=== PATIENT | female | born 1960 | race Caucasian/White ===

== ENCOUNTER 2024-12-08 10:18 | Outpatient (AMB) | payer OTHER, SELFPAY ==
--- NOTE | 2024-12-08 10:20 | MHC.PC.OV ---
Vital Signs 12/08/24 10:21 Height 5 ft 4.5 in Weight 221 lb 4 oz BMI 37.4 BP 118/76 Blood Pressure Location Lt brachial Position Sitting Pulse 70 Pulse Source Pulse Oximeter Pulse Oximetry (%) 98 Oxygen Delivery Method Room Air Intake Visit Reasons: establish care Direct Mail Coordinator Required: No Accompanied by: Self / Same As Patient Allergies diphenhydramine [From Benadryl] Allergy (Severe, Verified 12/08/24 10:49) Hives morphine Adverse Reaction (Severe, Verified 12/08/24 10:49) chest pain bee stings Allergy (Severe, Uncoded 12/08/24 10:49) Anaphylaxis Medication List - Last Reconciled 12/08/24 by Socrates Fine MD flaxseed oil 2,000 mg PO DAILY multivitamin 1 tab PO DAILY Tobacco use date assessed: 12/08/24 Dental Screening Dental Screen Date: 12/08/24 Did you have a dental visit in the last 12 months?: No Did you have a dental problem in the last 6 months where you did not have access to dental care?: No Was dental information given to patient?: Patient has dentist HPI establish care HPI Details Patient comes in today for her annual physical examination and to establish care - is a new patient to the practice Patient states that her previous PCP was in [place] and that she's had to switch insurance coverage due to cost but her previous PCP does not accept her current health insurance Patient states that she just had a breast Bx done at [place] last month (November 2024) and that her pathology reportedly came back benign States that she feels okay overall and does not really have any significant chronic medical issues She denies any headaches or dizziness Denies any chest pains, no SOB No nausea/vomiting, no abdominal pain No change in bowel habits noted She denies any acute urinary symptoms She is due for her repeat colonoscopy and would like to get a referral to go back to Dr. 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 and will let us know if she needs a referral from us or not She is overdue for her repeat bone density [facility] Medical History (Updated 12/08/24 @ 12:17 by Socrates Fine MD) Obesity (BMI 30-39.9) Surgical History (Updated 12/08/24 @ 10:58 by Socrates Fine MD) Hx of appendectomy Hx of colonoscopy History of partial colectomy Hx of umbilical hernia repair History of partial hysterectomy History of resection of rib Status post tonsillectomy Family History Other Breast cancer Diabetes Heart failure Hypertension Kidney disease Lung cancer Lymphoma Tracheal cancer Social History Housing: House Patient Tobacco Use Status: Former Tobacco user e-Cigarette/Vaping Use: Never Used service: No Current occupational status: employed Current occupational exposures/hazards: No Cognitive needs: No Hearing needs: No Vision needs: Yes Questionnaire PHQ-9 Over the last 2 weeks, how often have you been bothered by any of the following problems? 1. Little interest or pleasure in doing things: not at all 2. Feeling down, depressed, or hopeless: not at all 3. Trouble falling or staying asleep, or sleeping too much: not at all 4. Feeling tired or having little energy: not at all 5. Poor appetite or overeating: not at all 6. Feeling bad about yourself - or that you are a failure or have let yourself or your family down: not at all 7. Trouble concentrating on things, such as reading the newspaper or watching television: not at all 8. Moving or speaking so slowly that other people could have noticed. Or the opposite - being so fidgety or restless that you have been moving around a lot more than usual: not at all 9. Thoughts that you would be better off or of hurting yourself in some way: not at all Total score: 0 Depression Screening Interpretation: Negative Depression Screening Done: Yes 37122 - PHQ-9 Billing: Yes Source: Developed by Drs. Chad Camilo, Kathy Flowers, Yosi Marley and colleagues, with an educational surjit from [employer]. Thrive Questionnaire Date Thrive assessed: 12/08/24 I am a: Patient What is your living situation today?: I have a steady place to live Within the past 12 months, did the food you bought not last and you didn't have the money to get more?: Never true Within the past 12 months, did you worry whether your food would run out before you got money to buy more?: Never true Do you have trouble paying for medicines?: No Do you have trouble getting transportation to medical appointments?: No Do you have trouble paying your heating and electricity bill?: No Do you have trouble taking care of your child, family member or friend?: No Do you have trouble with day-to-day activities such as bathing, preparing meals, shopping, managing finances, etc.?: No Are you currently unemployed and looking for a job?: No Are you interested in more education?: No Please select the resources that you would like help with: None Currently or been in a relationship where the following occur: No concerns reported THRIVE Score: 0 AUDIT C Alcohol Use Questionnaire (AUDIT-C) 1. How often do you have a drink containing alcohol?: Never 3. How often do you have six or more drinks on one occasion?: Never Total Score: 0 Score Reviewed/Action Taken: Yes CODY-7 AMB Questionnaire CODY-7 Date CODY - 7 assessed: 12/08/24 Feeling nervous, anxious, or on edge: 0 = Not at all Not being able to stop or control worryin = Not at all Worrying too much about different things: 0 = Not at all Trouble relaxin = Not at all Being so restless that it is hard to sit still: 0 = Not at all Becoming easily annoyed or irritable: 0 = Not at all Feeling afraid as if something awful might happen: 0 = Not at all Total CODY-7 score (0-4 normal; 5-9 mild; 10-14 moderate; 15-21 severe): 0 Source: Developed by Drs. Chad Camilo, Kathy Flowers, Yosi Marley and colleagues, with an educational surjit from [employer]. Review of Systems Const Denies chills, Denies fatigue, Denies fever(s), Denies headache(s) and Denies malaise Eyes Denies blurry vision, Denies change in vision, Denies irritation and Denies itchy eyes ENT Denies dysphagia, Denies dizziness, Denies otalgia, Denies headache(s), Denies nasal congestion, Denies neck pain, Denies odynophagia, Denies sinus pain and Denies sore throat Card Denies chest pain, Denies rapid heart rate, Denies irregular heart rhythm, Denies palpitations and Denies dyspnea Resp Denies chest congestion, Denies cough, Denies dyspnea and Denies wheezing GI Denies abdominal pain, Denies bloating, Denies constipation, Denies dysphagia, Denies heartburn, Denies diarrhea, Denies nausea, Denies odynophagia and Denies vomiting Denies hematuria, Denies urinary frequency, Denies dysuria, Denies urinary incontinence and Denies urinary urgency Musc Denies back pain, Denies arthralgias, Denies joint swelling, Denies muscle weakness and Denies neck pain Skin/Breast Denies breast pain, Denies breast mass, Denies change in pigmentation, Denies lesions, Denies rash and Denies unusual bruising Neuro Denies dizziness, Denies headache(s) and Denies paresthesias Psych Denies anxiety and Denies depression Endo Denies fatigue and Denies palpitations Kermit/Lymph Denies easy bruising Aller/Immun Denies itchy eyes and Denies wheezing Physical exam (Primary Care) Vital Signs: Last Vital Signs Pulse 70 12/08/24 10:21 BP 118/76 12/08/24 10:21 Pulse Ox 98 12/08/24 10:21 Oxygen Delivery Method Room Air 12/08/24 10:21 BMI result Body Mass Index 37.4 Tobacco/Smoking Status: Tobacco use Status Tobacco use date assessed 12/08/24 12/08/24 10:32 Patient Tobacco Use Status Former Tobacco user 12/08/24 10:32 e-Cigarette/Vaping Use Never Used 12/08/24 10:32 PHQ-9: PHQ-9 Score PHQ-9: Total score 0 12/08/24 10:55 Depression Screening Interpretation: Negative Thrive Assessment: Date of Thrive Assessment Date Thrive assessed 12/08/24 12/08/24 10:32 Currently or been in a relationship where the following occur: No concerns reported Const General: no acute distress, alert and awake Orientation/consciousness: patient oriented x3 HENMT Head: Yes normocephalic and Yes atraumatic Ears: external ears normal, TM's normal bilaterally and EAC's normal General nose exam: No nasal discharge present Face and sinus: Yes normal facial exam and Yes sinuses nontender Teeth and gingiva: dentition normal Throat: Yes posterior oropharynx normal and Yes tonsils normal (no TP congestion) Eyes Eyelids: Yes eyelids normal Conjunctivae: conjunctivae normal Pupils: Equal, round and reactive pupils present EOM: EOMs intact bilaterally Neck Neck: Yes no lymphadenopathy and Yes supple Thyroid: Thyroid normal Resp Auscultation: clear to auscultation bilaterally, no rales and no wheezes Cardio Rate: regular rate Rhythm: regular rhythm Heart sounds: no murmurs GI Palpation (GI): Soft to palpation, nontender and No hepatosplenomegaly present Auscultation: normal bowel sounds General: Yes no CVA tenderness Back/Spine/Pelvis Back: no CVA tenderness Thoracic/Lumbar Spine: thoracic and lumbar spine normal to inspection Skin Lesions: no lesions Rashes: no rashes Neuro General: patient oriented x3, moves all extremities, no focal motor deficits and CN's II-XI intact bilaterally Cranial nerves: Yes Equal, round and reactive pupils present Cognition (Neuro): normal cognition Gait exam (Neuro): Normal gait present Extrem General: Yes no clubbing, cyanosis or edema Coding Level of Care Code New Pt Prev Care 40-64y(82235) Diagnoses Annual physical exam Z00.00 Obesity (BMI 30-39.9) E66.9 Colon cancer screening Z12.11 Osteoporosis screening Z13.820 Additional Codes PHQ-9 - 72290 - PHQ-9 Billing: Yes ([id number]) Assessment & Plan Assessment & Plan (1) Annual physical exam: Code(s): Z00.00 - Encounter for general adult medical examination without abnormal findings Category: Medical Plan: Check labs She just had breast Bx done last month (benign) and will be due for her next annual mammography in November of 2025 She is due for her repeat colonoscopy and would like to get a referral to go back to Dr. 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 Rima Hurtado at [place] for repeat colonoscopy (4) Osteoporosis screening: Code(s): Z13.820 - Encounter for screening for osteoporosis Category: Medical Plan: Will send her for BMD for osteoporosis screening Plan To return in 1 year for her next annual physical examination Orders: Orders Complete Blood Count Auto Diff Today D64.9 - Anemia, unspecified, Z00.00 - Encounter for general adult medical examination without abnormal findings Comprehensive [place]. Panel Fast Today E78.00 - Pure hypercholesterolemia, unspecified, Z00.00 - Encounter for general adult medical examination without abnormal findings Lipid Panel Today E78.00 - Pure hypercholesterolemia, unspecified, Z00.00 - Encounter for general adult medical examination without abnormal findings UA CC w/rflx Micro + Cult Today R30.0 - Dysuria, Z00.00 - Encounter for general adult medical examination without abnormal findings Vitamin D 25-OH Total Today E55.9 - Vitamin D deficiency, unspecified, Z00.00 - Encounter for general adult medical examination without abnormal findings TSH reflex Free T4 Today E78.00 - Pure hypercholesterolemia, unspecified, Z00.00 - Encounter for general adult medical examination without abnormal findings Vitamin B12 and Folate Today E53.8 - Deficiency of other specified B group vitamins, Z00.00 - Encounter for general adult medical examination without abnormal findings XR DEXA axial skeleton Today Z78.0 - Asymptomatic menopausal state Referrals Gastroenterology Referral Z12.11 - Encounter for screening for malignant neoplasm of colon
[2024-12-08 10:21] VITALS: BP 118/76; PULSE 70; O2SAT 98; BMI 37.4
--- OUTSIDE RECORDS SUMMARY | 2024-12-08 11:22 | XMS_ITS | Data Portability ---
Author Organization [facility], Main Office Address [address] [facility] [address] [place] [id number] Care Team Providers Care [employer] Name Role Phone JEFFREY KWOK Primary Care Provider MILDRED HURTADO Overnight Babysitter ANA SKINNER Surgical Orderly Assessment No assessment recorded. Plan of Treatment Reminders Order Date Submit Date Provider Last Modified By Organization Details Last Modified Time Details Appointments None recorded. Lab hepatic function panel, serum 2023 024 [facility], [address], [address], [place], [address], 4 16:17:34 lipid panel, serum 2023 024 [facility], [address], [address], [place], [address], 4 16:17:35 BMP, serum or plasma 2023 024 [facility], [address], [address], [place], [address], 4 16:17:33 CBC w/ auto diff 2023 024 [facility], [address], [address], [place], [address], 4 14:40:05 TSH, serum or plasma 2023 024 [facility], [address], [address], [place], [address], 4 16:16:51 hepatitis C virus Ab, serum 2023 024 [facility], [address], [address], [place], [address], 4 21:11:17 vitamin B12, serum 2023 024 [facility], [address], [address], [place], [address], 4 16:16:50 vitamin D, 25-hydroxy, total, serum 2023 024 [facility], [address], [address], [place], [address], 4 16:16:52 Referral None recorded. Procedures None recorded. Surgeries None recorded. Imaging CT, abdomen + pelvis, w/ contrast - chronic pain for several months, located in the epigastric region and radiates to the back 2023 024 jenna [facility] ([facility]), [address] [place], [address], 4 11:31:04 MAMMO, screening, bilateral 2023 024 [facility], [address], [address], [place], [address], 4 13:18:55 electromyog jim + nerve conduction study - of the bilateral upper extremities 2023 024 jenna [facility] [address], [place], [address], 4 12:46:45 Medication Orders Readi-Cat 2 2.1 % (w/v), 2.0 % (w/w) oral suspension 2023 024 sbaptista 6 [facility], [address] [place] [address], [place], [address], 11:14:35 Patient TargetsNo targets recorded. Patient Instructions Encounter Date Encounter Id Patient Instructions Last Modified By Organization Details Last Modified Time 09/10/2023 [id number] gastroesophageal reflux disease (GERD): care instructions Not available 09/10/2023 08:47:24 learning about m ood disorders Not available 09/10/2023 08:47:01 starting a weigh t loss plan: care instructions Not available 09/10/2023 09:51:28 Nutrition Referr al and Weight Management Follow-up Information Not available 09/10/2023 09:51:28 03/16/2024 [id number] gastroesophageal reflux disease (GERD): care instructions Not available 03/16/2024 11:44:30 Reason for Referral None Reported. Results Created Date Observation Date Name Description Value Unit Range Abnormal Flag Note LastModifiedBy Organization Detail LastModifiedTime 09/10/1909/10/2023 COMPL ETE CBC WITH DIFF WBC 5.6 K/mm3 (4.0-1 1.0) Not Available [facility] (Centralized Electronic Ordering - All Locations) Patient Can Go To The Location Of Their Choice, 09/10/2023 14:36:26 09/10/1909/10/2023 COMPL ETE CBC WITH DIFF RBC 4.33 M/mm3 (4.20- 5.40) Not Available [facility] (Centralized Electronic Ordering - All Locations) Patient Can Go To The Location Of Their Choice, 09/10/2023 14:36:26 09/10/1909/10/2023 COMPL ETE CBC WITH DIFF HGB 13.3 gm/dL (11.7- 15.5) Not Available [facility] (Centralized Electronic Ordering - All Locations) Patient Can Go To The Location Of Their Choice, 09/10/2023 14:36:26 09/10/19 24 09/10/2023 COMPL ETE CBC WITH DIFF HCT 41.1 % (35.7- 45.8) Not Available [facility] (Centralized Electronic Ordering - All Locations) Patient Can Go To The Location Of Their Choice, 09/10/2023 14:36:09/10/1909/10/2023 COMPL ETE CBC WITH DIFF MCV 94.9 fL (80.0- 100.0) Not Available [facility] (Centralized Electronic Ordering - All Locations) Patient Can Go To The Location Of Their Choice, 09/10/2023 14:36:09/10/1909/10/2023 COMPL ETE CBC WITH DIFF MCH 30.7 pg (27.0- 34.0) Not Available [facility] (Centralized Electronic Ordering - All Locations) Patient Can Go To The Location Of Their Choice, 09/10/2023 14:36:09/10/1909/10/2023 COMPL ETE CBC WITH DIFF MCHC 32.4 g/dL (33.0- 37.0) low Not Available [facility] (Centralized Electronic Ordering - All Locations) Patient Can Go To The Location Of Their Choice, 09/10/2023 14:36:09/10/1909/10/2023 COMPL ETE CBC WITH DIFF plt 241 K/mm3 (150-4 60) Not Available [facility] (Centralized Electronic Ordering - All Locations) Patient Can Go To The Location Of Their Choice, 09/10/2023 14:36:26 09/10/1909/10/2023 COMPL ETE CBC WITH DIFF RDW-SD 42.8 fL (<47.0 ) Not Available [facility] (Centralized Electronic Ordering - All Locations) Patient Can Go To The Location Of Their Choice, 09/10/2023 14:36:09/10/1909/10/2023 COMPL ETE CBC WITH DIFF MPV 9.9 fL (9.4-1 2.4) Not Available [facility] (Centralized Electronic Ordering - All Locations) Patient Can Go To The Location Of Their Choice, 09/10/2023 14:36:09/10/1909/10/2023 COMPL ETE CBC WITH DIFF automated NRBC 0.0 #/100 _WBC' s Not Available [facility] (Centralized Electronic Ordering - All Locations) Patient Can Go To The Location Of Their Choice, 09/10/2023 14:36:26 09/10/19 24 09/10/2023 COMPL ETE CBC WITH DIFF abs. NRBC 0.0 K/mm3 Not Available [facility] (Centralized Electronic Ordering - All Locations) Patient Can Go To The Location Of Their Choice, 09/10/2023 14:36:26 09/10/19 24 09/10/2023 COMPL ETE CBC WITH DIFF neut # 2.9 K/mm3 (1.3-7 .0) Not Available [facility] (Centralized Electronic Ordering - All Locations) Patient Can Go To The Location Of Their Choice, 09/10/2023 14:36:26 09/10/19 24 09/10/2023 COMPL ETE CBC WITH DIFF lymph # 1.9 K/mm3 (0.8-3 .1) Not Available [facility] (Centralized Electronic Ordering - All Locations) Patient Can Go To The Location Of Their Choice, 09/10/2023 14:36:26 09/10/1909/10/2023 COMPL ETE CBC WITH DIFF mono# 0.7 K/mm3 (0.4-0 .9) Not Available [facility] (Centralized Electronic Ordering - All Locations) Patient Can Go To The Location Of Their Choice, 09/10/2023 14:36:26 09/10/1909/10/2023 COMPL ETE CBC WITH DIFF eo # 0.1 K/mm3 (0.0-0 .4) Not Available [facility] (Centralized Electronic Ordering - All Locations) Patient Can Go To The Location Of Their Choice, 09/10/2023 14:36:26 09/10/19 24 09/10/2023 COMPL ETE CBC WITH DIFF baso # 0.0 K/mm3 (0.0-0 .1) Not Available [facility] (Centralized Electronic Ordering - All Locations) Patient Can Go To The Location Of Their Choice, 09/10/2023 14:36:26 09/10/19 24 09/10/2023 COMPL ETE CBC WITH DIFF abs. imm gran 0.0 K/mm3 Not Available [facility] (Centralized Electronic Ordering - All Locations) Patient Can Go To The Location Of Their Choice, 09/10/2023 14:36:26 09/10/19 24 09/10/2023 COMPL ETE CBC WITH DIFF neut 51.3 % (44-76 ) Not Available [facility] (Centralized Electronic Ordering - All Locations) Patient Can Go To The Location Of Their Choice, 09/10/2023 14:36:26 09/10/19 24 09/10/2023 COMPL ETE CBC WITH DIFF lymph 34.1 % (15-43 ) Not Available [facility] (Centralized Electronic Ordering - All Locations) Patient Can Go To The Location Of Their Choice, 09/10/2023 14:36:26 09/10/19 24 09/10/2023 COMPL ETE CBC WITH DIFF monocyte 12.1 % (4.5-1 0.5) high Not Available [facility] (Centralized Electronic Ordering - All Locations) Patient Can Go To The Location Of Their Choice, 09/10/2023 14:36:26 09/10/19 24 09/10/2023 COMPL ETE CBC WITH DIFF eo 1.6 % (0-6) Not Available [facility] (Centralized Electronic Ordering - All Locations) Patient Can Go To The Location Of Their Choice, 09/10/2023 14:36:26 09/10/19 24 09/10/2023 COMPL ETE CBC WITH DIFF baso 0.7 % (0-2) Not Available [facility] (Centralized Electronic Ordering - All Locations) Patient Can Go To The Location Of Their Choice, 09/10/2023 14:36:26 09/10/19 24 09/10/2023 COMPL ETE CBC WITH DIFF imm gran 0.2 % Not Available [facility] (Centralized Electronic Ordering - All Locations) Patient Can Go To The Location Of Their Choice, 09/10/2023 14:36:26 09/10/1909/10/2023 VITAM IN B12 vitamin B12 651 pg/mL (232-1 245) Not Available [facility] (Centralized Electronic Ordering - All Locations) Patient Can Go To The Location Of Their Choice, 09/10/2023 16:16:50 09/10/1909/10/2023 TSH WITH REFLE X TO FT4 TSH 1.65 uIU/m L (0.4-4 .2) Not Available [facility] (Centralized Electronic Ordering - All Locations) Patient Can Go To The Location Of Their Choice, 09/10/2023 16:16:51 09/10/19 24 09/10/2023 25OH VITAM IN D 25OH vitamin D 47.9 NG/mL (20-50 ) Not Available [facility] (Centralized Electronic Ordering - All Locations) Patient Can Go To The Location Of Their Choice, 09/10/2023 16:16:52 09/10/1909/10/2023 BASIC METAB OLIC PANEL glucose 82 mg/dL (70-99 ) Not Available [facility] (Centralized Electronic Ordering - All Locations) Patient Can Go To The Location Of Their Choice, 09/10/2023 16:17:32 09/10/1909/10/2023 BASIC METAB OLIC PANEL BUN 10 mg/dL (8-23) Not Available [facility] (Centralized Electronic Ordering - All Locations) Patient Can Go To The Location Of Their Choice, 09/10/2023 16:17:32 09/10/1909/10/2023 BASIC METAB OLIC PANEL creatinine 0.6 mg/dL (0.5-1 .0) Not Available [facility] (Centralized Electronic Ordering - All Locations) Patient Can Go To The Location Of Their Choice, 09/10/2023 16:17:32 09/10/1909/10/2023 BASIC METAB OLIC PANEL sodium 140 mmol/ L (133-1 45) Not Available [facility] (Centralized Electronic Ordering - All Locations) Patient Can Go To The Location Of Their Choice, 09/10/2023 16:17:32 09/10/1909/10/2023 BASIC METAB OLIC PANEL potassium 4.5 mmol/ L (3.6-5 .2) Not Available [facility] (Centralized Electronic Ordering - All Locations) Patient Can Go To The Location Of Their Choice, 09/10/2023 16:17:32 09/10/1909/10/2023 BASIC METAB OLIC PANEL chloride 101 mmol/ L (98-10 7) Not Available [facility] (Centralized Electronic Ordering - All Locations) Patient Can Go To The Location Of Their Choice, 09/10/2023 16:17:32 09/10/1909/10/2023 BASIC METAB OLIC PANEL bicarbonate 29 mmol/ L (22-29 ) Not Available [facility] (Centralized Electronic Ordering - All Locations) Patient Can Go To The Location Of Their Choice, 09/10/2023 16:17:32 09/10/19 24 09/10/2023 BASIC METAB OLIC PANEL anion gap 10 (4-17) Not Available [facility] (Centralized Electronic Ordering - All Locations) Patient Can Go To The Location Of Their Choice, 09/10/2023 16:17:32 09/10/19 24 09/10/2023 BASIC METAB OLIC PANEL calcium 9.2 mg/dL (8.6-1 0.5) Not Available [facility] (Centralized Electronic Ordering - All Locations) Patient Can Go To The Location Of Their Choice, 09/10/2023 16:17:32 09/10/19 24 09/10/2023 BASIC METAB OLIC PANEL estimated GFR creatinine 102 mL/mi n/1.7 3_M2 Creat inine based estim ated glome rular filtr ation (eGFR ) in adult s is calcu lated using the Natio nal Kidne y Found ation recom ute d 2020 CKD-E PI equat ion. Estim ates GFR from serum creat inine , age and sex. Not Available [facility] (Centralized Electronic Ordering - All Locations) Patient Can Go To The Location Of Their Choice, 09/10/2023 16:17:32 09/10/19 24 09/10/2023 HEPAT IC FUNCT ION PANEL bilirubin,to amy 0.4 mg/dL (0-1.2 ) Not Available [facility] (Centralized Electronic Ordering - All Locations) Patient Can Go To The Location Of Their Choice, 09/10/2023 16:17:34 09/10/19 24 09/10/2023 HEPAT IC FUNCT ION PANEL bilirubin, direct <0.2 mg/dL (0-0.3 ) Not Available [facility] (Centralized Electronic Ordering - All Locations) Patient Can Go To The Location Of Their Choice, 09/10/2023 16:17:34 09/10/19 24 09/10/2023 HEPAT IC FUNCT ION PANEL indirect bilirubin mg/dL (0.0-0 .7) Direc t bilir ubin is less than the measu reabl e limit . There fore, indir ect bilir ubin canno t be calcu lated . Not Available [facility] (Centralized Electronic Ordering - All Locations) Patient Can Go To The Location Of Their Choice, 09/10/2023 16:17:34 09/10/19 24 09/10/2023 HEPAT IC FUNCT ION PANEL albumin 4.4 gm/dL (3.4-4 .8) Not Available [facility] (Centralized Electronic Ordering - All Locations) Patient Can Go To The Location Of Their Choice, 09/10/2023 16:17:34 09/10/19 24 09/10/2023 HEPAT IC FUNCT ION PANEL AST 20 U/L (0-32) Not Available [facility] (Centralized Electronic Ordering - All Locations) Patient Can Go To The Location Of Their Choice, 09/10/2023 16:17:34 09/10/19 24 09/10/2023 HEPAT IC FUNCT ION PANEL ALT 16 U/L (0-33) Not Available [facility] (Centralized Electronic Ordering - All Locations) Patient Can Go To The Location Of Their Choice, 09/10/2023 16:17:34 09/10/19 24 09/10/2023 HEPAT IC FUNCT ION PANEL alk phos 79 U/L (35-10 4) Not Available [facility] (Centralized Electronic Ordering - All Locations) Patient Can Go To The Location Of Their Choice, 09/10/2023 16:17:34 09/10/19 24 09/10/2023 HEPAT IC FUNCT ION PANEL total protein 7.2 gm/dL (6.2-8 .2) Not Available [facility] (Centralized Electronic Ordering - All Locations) Patient Can Go To The Location Of Their Choice, 09/10/2023 16:17:34 09/10/19 24 09/10/2023 LIPID PANEL cholesterol, total 253 mg/dL (<200) high Not Available [facility] (Centralized [facility] Ordering - All Locations) Patient Can Go To The Location Of Their Choice, 09/10/2023 16:17:35 09/10/19 24 09/10/2023 LIPID PANEL triglyceride 106 mg/dL (<150) Not Available [facility] ([facility] Order[facility] - All Locations) Patient Can Go To The Location Of Their Choice, 09/10/2023 16:17:35 09/10/19 24 09/10/2023 LIPID PANEL HDL chol 50 mg/dL (>39) Not Available [facility] (Centralized Electronic Ordering - All Locations) Patient Can Go To The Location Of Their Choice, 09/10/2023 16:17:35 09/10/19 24 09/10/2023 LIPID PANEL LDL cholesterol, calculated 182 mg/dL (0-130 ) high Not Available [facility] (Centralized Electronic Ordering - All Locations) Patient Can Go To The Location Of Their Choice, 09/10/2023 16:17:35 09/10/19 24 09/10/2023 LIPID PANEL non HDL cholesterol (calc) 203 mg/dL (<160) high Not Available [facility] (Centralized [facility] Ordering - All Locations) Patient Can Go To The Location Of Their Choice, 09/10/2023 16:17:35 09/10/19 24 09/10/2023 ANTI- HEPAT ITIS C anti-hepatit is C (neg) normal NEGAT DANIELLE Refer ence range : Negat danielle This test was perfo rmed on the Abbot t Archi tect immun oassa y syste m. 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 Breast , Right, 7:00 3cm fn: Label ed righ t breas t 7:00, 3 . Recei jessica in forma raudel are four cylin drica l yello w-zabala fibro fatty breas t cores , rangi ng from 0.3 x 0.1 cm to 0.7 x 0.1 cm, which are submi tted in toto betwe en spong es in one casse tte, four piece s, x 3. Time colle cted: 9:17 AM 2024 Time put in forma raudel: 9:20 AM 2024 Total cold ische ry time: 3 minut es Time tissu e exits final stage of forma raudel on tissu e proce ssor: 12 AM 2024 Total fixat ion time (idea lly betwe en 6 and 72 hours ): 14.5 hours BETH Not Available [address], [address], 11/02/2024 11:17:37 11/01/19 25 10/31/2024 TISSU E EXAM disclaimer Unles s other sweet speci fied, all tissu e is 10% NB forma raudel fixed and paraf fin embed ded. Not Available [address], [address], 11/02/2024 11:17:37 10/27/19 24 10/07/2023 MAMMO , scree david, bilat eral No observ ation record ed. [email or web address] [facility] [address], [address], 10/27/2023 13:20:30 12/07/19 24 12/06/2023 elect romyo gram + nerve condu ction study No observ ation record ed. [facility] [address], [place], [address], 12/10/2023 14:25:52 04/06/20 24 04/06/2024 XR, abdom en Supine and uprigh t views of the abdome n and pelvis dated April 06, 2024. No prior studie s are availa ble. HISTOR Y: Pain. FINDIN GS: This examin ation shows a nonobs tructe d bowel gas patter n. No suspic ious masses or suspic ious calcif icatio ns are identi fied. No air-fl uid levels , or free air are apprec iated. Visual ized osseou s struct ures are unrema rkable . IMPRES HASMUKH: No eviden ce of obstru ction or free air. Examin ation [id number]. Thank you for allowi ng me to partic ipate in the care of this patien t. WSN: [id number] Orderi ng Physic veronica: Keara Henley Dictat ed By: Edis Marte MD Dictat ed Date/T liliana: 3:46 pm Review ed By: Edis Marte MD Signed By: Edis Marte MD Signed Date/T liliana: 3:46 pm Transc ribed By: AUSTIN Transc ribed Date/T liliana: 3:46 pm Patien t Class: Outpat ient [facility] (Outpt Imaging) [address], [place], [address], 04/12/2024 10:58:38 10/14/19 25 10/13/2024 mg mammo digit al scree david W osbaldo bilat See Note [facility] , a member of [email or web address] [facility] Name: ASTRID DUFF Date of : 1959 Reason for Exam: Breast cancer screen , avg risk, asympt omatic (Age => 41y) Exam Date: 2024 [id number] EST Report Status : Final Orderi ng Provid er: ANA E EPPSTE INER PCP: KEARA FONTENOT TA A BILATE RAL DIGITA L 3D SCREEN ING MAMMOG MARIE HISTOR Y: Routin e screen ing. Family histor y of breast cancer in sister . COMPAR ELENA: Multip le priors dating back to 2020 Techni que: Bilate ral full field digita l mammog marie (3D) was perfor med using standa rd CC and MLO projec tions CAD was used to evalua te this mammog jim. FINDIN GS: Right: Indete rminat e lower outer anteri or depth focal asymme try slight ly increa sed in size from prior Left: Indete rminat e cc view centra l to the nipple middle depth asymme try BREAST DENSIT Y: B - There are scatte red areas of fibrog landul ar densit y. IMPRES HASMUKH: 1. Right: Indete rminat e lower outer anteri or depth focal asymme try slight ly increa sed from prior 2. Left: Indete rminat e cc view centra l to the nipple middle depth asymme try 3. Scatte red fibrog landul ar tissue BI-RAD S CATEGO RY: 0 - INCOMP LETE - NEED ADDITI ONAL IMAGIN G EVALUA TION RECOMM ENDATI ON: Additi onal bilate ral breast imagin g recomm ended. Right breast CC and MLO spot compre ssion, full-f ield ML, target ed ultras ound, left breast cc view spot compre ssion, target ed ultras ound Mammo Locati on: [place] [facility] [facility], [address], [place] , [place], [address], [phone] . ------ -- FINAL REPORT ------ -- Dictat ed By: Nahomi Colon Dictat ed Date: 2024 13:45 ET Assign ed Physic veronica: Nahomi Colon Review ed and Electr onical ly Signed By: Nahomi Colon Signed Date: 2024 13:52 ET Workst ation ID: [id number] Transc ribed By: Self Edit Transc ribed Date: 2024 13:45 ET [facility] [address] [facility] [address] [facility], [place], [address], 10/14/2024 10:26:02 10/24/19 25 10/23/2024 US breas t limit ed bilat See Note [facility] , a member of [email or web address] [facility] Name: ASTRID DUFF Date of : 1959 Reason for Exam: b/l Exam Date: 2024 [id number] EST Report Status : Final Orderi ng Provid er: ANA E EPPSTE INER PCP: KEARA GARCIA EXAM: MG MAMMO DIGITA L DIAGNO STIC W OSBALDO BILAT, US BREAST LIMITE D BILAT HISTOR Y: Call back from a screen ing mammog jim. FINDIN GS: Right: -90 ML and spot compre ssion MLO and CC views perfor med with tomosy nthesi s. Persis tent 1.0 cm ovoid partia lly circum scribe d lesion in the anteri or lower outer breast . -Targe fabricio sonogr aphy was subseq uently perfor med. 0.9 x 0.8 x 0.4 cm hetero geneou s hypoec hoic ovoid lesion identi fied at the 7 o'cloc k positi on, 3 cm from the nipple , which appear s to corres pond with the mammog raphic findin g. Insurance Sales Agent al blood flow presen t on color Dopple r. The lesion is indete rminat e and ultras ound-g uided core biopsy is recomm ended to exclud e malign ojse. Left: -Spot compre ssion CC view perfor med with tomosy nthesi s. The asymme try centra l to the nipple at the middle depth does not persis t. Per tomosy nthesi s, the asymme try should be in the upper breast . -Nahun regalado sonogr aphy was subseq uently perfor med at 11-1 o'cloc k positi on. 0.4 x 0.3 x 0.2 cm cyst at the 12 o'cloc k positi on, 2 cm from the nipple , which is likely incide ntal. No suspic ious mass identi fied. IMPRES HASMUKH: Right: Recomm end ultras ound-g uided core biopsy of a 0.9 cm lesion at the 7 o'cloc k positi on. Biopsy appoin tment has been schedu led. Left: No suspic ious findin g on callba ck imagin g. Routin e annual screen ing mammog marie recomm ended. BREAST DENSIT Y: B - There are scatte red areas of fibrog landul ar densit y. BI-RAD S CATEGO RY: 4 - SUSPIC IOUS RECOMM ENDATI ON: Core biopsy of right breast recomm ended. Screen ing left mammog jim is recomm ended in 1 year. MAMMO LOCATI ON: [facility], [address] [facility], [place], [place] [facility] [place], [address], . ------ -- FINAL REPORT ------ -- Dictat ed By: Shona Rivera Dictat ed Date: 2024 10:22 ET Assign ed Physic veronica: Shnoa Rivera Review ed and Electr onical ly Signed By: Shona Rivera Signed Date: 2024 10:38 ET Workst ation ID: [id number] Transc ribed By: Self Edit Transc ribed Date: 2024 10:22 ET [facility] [address] [facility], [place], [address], 10/23/2024 10:45:53 10/24/19 25 10/23/2024 mg mammo digit al diagn ostic W osbaldo bilat See Note [facility] , a member of [email or web address] [facility] Name: ASTRID HARTMAN OMEGA Date of : 1959 Reason for Exam: b/l Exam Date: 2024 [id number] EST Report Status : Final Orderi ng Provid er: ANA E EPPSTE INER PCP: KEARA GARCIA EXAM: MG MAMMO DIGITA L DIAGNO STIC W OSBALDO BILAT, US BREAST LIMITE D BILAT HISTOR Y: Call back from a screen ing mammog jim. FINDIN GS: Right: -90 ML and spot compre ssion MLO and CC views perfor med with tomosy nthesi s. Persis tent 1.0 cm ovoid partia lly circum scribe d lesion in the anteri or lower outer breast . -Nahun regalado sonogr aphy was subseq uently perfor med. 0.9 x 0.8 x 0.4 cm hetero geneou s hypoec hoic ovoid lesion identi fied at the 7 o'cloc k positi on, 3 cm from the nipple , which appear s to corres pond with the mammog raphic findin g. Insurance Sales Agent al blood flow presen t on color Dopple r. The lesion is indete rminat e and ultras ound-g uided core biopsy is recomm ended to exclud e malign jose. Left: -Spot compre ssion CC view perfor med with tomosy nthesi s. The asymme try centra l to the nipple at the middle depth does not persis t. Per tomosy nthesi s, the asymme try should be in the upper breast . -Nahun regalado sonogr aphy was subseq uently perfor med at 11-1 o'cloc k positi on. 0.4 x 0.3 x 0.2 cm cyst at the 12 o'cloc k positi on, 2 cm from the nipple , which is likely incide ntal. No suspic ious mass identi fied. IMPRES HASMUKH: Right: Recomm end ultras ound-g uided core biopsy of a 0.9 cm lesion at the 7 o'cloc k positi on. Biopsy appoin tment has been schedu led. Left: No suspic ious findin g on callba ck imagin g. Routin e annual screen ing mammog marie recomm ended. BREAST DENSIT Y: B - There are scatte red areas of fibrog landul ar densit y. BI-RAD S CATEGO RY: 4 - SUSPIC IOUS RECOMM ENDATI ON: Core biopsy of right breast recomm ended. Screen ing left mammog jim is recomm ended in 1 year. MAMMO LOCATI ON: [place] [facility], [address] [facility], [place] [facility] [place], [address], . ------ -- FINAL REPORT ------ -- Dictat ed By: Shona Rivera Dictat ed Date: 2024 10:22 ET Assign ed Physic veronica: Shona Rivera Review ed and Electr onical ly Signed By: Shona Rivera Signed Date: 2024 10:38 ET Workst ation ID: HTPSCR [id number] Transc ribed By: Self Edit Transc ribed Date: 2024 10:[address], [address], 10/23/2024 10:46:20 11/03/19 25 10/31/2024 mg mammo digit al diagn ostic clip post US/MR guide right See Note [facility] , a member of [email or web address] [facility] Name: ASTRID DUFF Date of : 1959 Reason for Exam: right core/c lip Exam Date: 2024 [id number] EST Report Status : Final Orderi ng Provid er: ANA E EPPSTE INER PCP: KEARA GARCIA EXAM: Ultras ound guided core-n eedle biopsy of the right breast . HISTOR Y: Ultras ound-g uided biopsy for right breast 7:00 lesion COMPAR ELENA: Ultras ound breast from 2024 CONSEN T: The time-o ut, which includ ed the woman' s full name, date of , descri ption of the expect ed proced ure and proced ure site, was perfor med immedi ately before the proced ure to confir m woman' s identi ty. Inform ed consen t was obtain ed. PROCED URE: An ultras ound guided biopsy was perfor med for the right breast 7:00 lesion . The patien t was placed in the supine positi on and the lesion was locali zed using real-t liliana sonogr aphy. The skin was preppe d in the usual manner and draped . Subcut aneous lidoca ine was admini stered at the expect ed entry site. Additi onal subcut aneous anesth esia was provid ed. A skin lisa was made using a scalpe l. A 14-gau ge SMX breast biopsy needle was advanc ed to the presel ected lesion . 4 core biopsy specim ens were obtain ed and post-f vane images docume nting needle placem ent were record ed. Biopsy marker clip was insert ed into the biopsy cavity under ultras ound guidan ce. Postpr ocedur e mammog jim demons trates clip. A wing clip was placed . Follow ing the proced ure, the biopsy site was compre ssed and cleane d. Steri- Strips and steril e gauze were applie d and the patien t was given post-b iopsy instru ctions . The patien t tolera fabricio the proced ure well and left the depart ment in good condit ion. Specim ens were placed in formal in and sent for pathol ogic analys is. Perman ent images are saved to PACS. IMPRES HASMUKH: Succes sful ultras ound-g uided biopsy of a right breast 7:00 lesion SURGIC AL PATHOL OGY REPORT DIAGNO SIS: Intrad uctal papill flor. No atypia or malign jose Pathol ogy findin gs are concor dant with imagin g findin gs. BIRADS catego ry 2 - Benign findin gs RECOMM ENDATI ON: Surgic al consul tation /manag ement recomm ended for the right breast . A griselda vasques was left on the patien t's teleph one at 11:24 AM on 2024 ------ -- FINAL REPORT ------ -- Dictat ed By: Nahomi Colon Dictat ed Date: 2024 13:16 ET Assign ed Physic veronica: Nahomi Colon Review ed and Electr onical ly Signed By: Nahomi Colon Signed Date: 2024 11:25 ET Workst ation ID: HTPSCR [id number] Transc ribed By: Self Edit Transc ribed Date: 2024 13:45 ET [facility] [address] [facility], [place], [address], 11/02/2024 13:07:03 11/03/1910/31/2024 US BX breas t perc 1st lesio n right See Note [facility] , a member of [email or web address] [facility] t Name: ASTRID DUFF Date of : 1959 Reason for Exam: right core/c lip Exam Date: 2024 [id number] EST Report Status : Final Orderi ng Provid er: ANA E EPPSTE INER PCP: KEARA GARCIA EXAM: Ultras ound guided core-n eedle biopsy of the right breast . HISTOR Y: Ultras ound-g uided biopsy for right breast 7:00 lesion COMPAR ELENA: Ultras ound breast from 2024 CONSEN T: The time-o ut, which includ ed the woman' s full name, date of , descri ption of the expect ed proced ure and proced ure site, was perfor med immedi ately before the proced ure to confir m woman' s identi ty. Inform ed consen t was obtain ed. PROCED URE: An ultras ound guided biopsy was perfor med for the right breast 7:00 lesion . The patien t was placed in the supine positi on and the lesion was locali zed using real-t liliana sonogr aphy. The skin was preppe d in the usual manner and draped . Subcut aneous lidoca ine was admini stered at the expect ed entry site. Additi onal subcut aneous anesth esia was provid ed. A skin lisa was made using a scalpe l. A 14-gau MiArch breast biopsy needle was advanc ed to the presel ected lesion . 4 core biopsy specim ens were obtain ed and post-f vane images docume nting needle placem ent were record ed. Biopsy marker clip was insert ed into the biopsy cavity under ultras ound venus munson. Postpr ocedur e mammog jim demons trates clip. A wing clip was placed . Follow ing the proced ure, the biopsy site was compre ssed and cleane d. Steri- Strips and steril e gauze were applie d and the patien t was given post-b iopsy instru ctions . The patien t tolera fabricio the proced ure well and left the depart ment in good condit ion. Specim ens were placed in formal in and sent for pathol ogic analys is. Perman ent images are saved to PACS. IMPRES HASMUKH: Succes sful ultras ound-g uided biopsy of a right breast 7:00 lesion SURGIC AL PATHOL OGY REPORT DIAGNO SIS: Intrad uctal papill flor. No atypia or malign jose Pathol ogy findin gs are concor dant with imagin g findin gs. BIRADS catego ry 2 - Benign findin gs RECOMM ENDATI ON: Surgic al consul tation /manag ement recomm ended for the right breast . A messag e was left on the elina bruner's teleph one at 11:24 AM on 2024 ------ -- FINAL REPORT ------ -- Dictat ed By: Nahomi Colon Dictat ed Date: 2024 13:16 ET Assign ed Physic veronica: Nahomi Colon Review ed and Electr onical ly Signed By: Nahomi Colon Signed Date: 2024 11:25 ET Workst ation ID: HTPSCR [id number] Transc ribed By: Self Edit Transc ribed Date: 2024 13:[address], [address], 11/02/2024 13:07:03 Result Notes None recorded. Problems Name Problem SNOMED Code Status Onset Date Resolution Date Notes Provider Name and Address Organization Details Recorded Time Hyperlip idemia 27293052 Active 2023 JEFFREY KWOK MD [address] [facility] [address], [place], [address], [facility] 4 07:44:50 Liver cyst 30169411 Active 2023 JEFFREY KWOK MD [address] [facility] [address], [place], [address], [facility] 4 07:44:59 Depressi ve disorder 18923362 Active 2023 JEFFREY KWOK MD [address] [facility] [address], [place], [address], [facility] 4 07:45:05 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 Completed 202309/10/2023 JEFFREY KWOK MD [address] [facility] [address], [place], [address], [facility] 4 07:50:31 Numbness of upper limb 039809223 Active 2023 in the neck having neck pain (laying down) the arms are numb, cold the fingers go numb with migraines JEFFREY KWOK MD [address] [facility] [address], [place], [address], [facility] 4 08:31:05 Irritabl e bowel syndrome 79759206 Active 2023 JEFFREY KWOK MD [address] [facility] [address], [place], [address], [facility] 4 08:35:39 Carpal tunnel syndrome 91831207 Active 2023 JEFFREY KWOK MD [address] [facility] [address], [place], [address], [facility] 4 11:12:18 Problem Notes None recorded. Procedures Surgical History Date Name Laterality Status Provider Name and Address Organization Details Recorded Time 10/07/19 24 Most Recent Mammogram completed Kari Noble [facility] 10/27/2023 13:20:25 02/13/20 22 Colonoscopy completed Kari Noble [facility] 03/23/2023 16:15:11 total hysterectomy completed JEFFREY KWOK MD [address] [facility] [address], [place], [address], [facility] 09/10/2023 07:48:22 hernia repair completed JEFFREY KWOK MD [address] [facility] [address] [facility], [place], [address], [facility] 09/10/2023 07:48:34 excision of rib completed JEFFREY KWOK MD [address] [facility] [address] [facility], [place], [address], [facility] 09/10/2023 07:48:51 Remove tonsils and adenoids completed JEFFREY KWOK MD [address] [facility] [address] [facility], [place], [address], [facility] 09/10/2023 07:49:10 Appendectomy completed JEFFREY KWOK MD [address] [address], [place], [address], [facility] 09/10/2023 07:49:17 Partial removal of colon completed JEFFREY KWOK MD [address] [address], [place], [address], [facility] 09/10/2023 08:34:13 Imaging Results Imaging Date Name Status LastModified by Organization Details LastModified Time 10/07/2023 MAMMO, screening, bilateral completed [id number] [facility] [facility], [place], [address], 10/27/2023 13:20:30 12/06/2023 electromyogram + nerve conduction study completed [facility] [address], [place], [address], 12/10/2023 14:25:52 04/06/2024 XR, abdomen completed [email or web address] [facility] ([facility] [address] [facility], [place], [address], 04/12/2024 10:58:38 10/13/2024 mg mammo digital screening W osbaldo bilat completed [facility] [address] [facility], [place], [address], 10/14/2024 10:26:02 10/23/2024 US breast limited bilat completed [address], [address], 10/23/2024 10:45:53 10/23/2024 mg mammo digital diagnostic W osbaldo bilat completed [address], [address], 10/23/2024 10:46:20 10/31/2024 mg mammo digital diagnostic clip post US/MR guide right completed [address], [address], 11/02/2024 13:07:03 10/31/2024 US BX breast perc 1st lesion right completed [address], [address], 11/02/2024 13:07:03 Procedure Notes None recorded. Medical Equipment None Reported. Allergies Allergen ID Allergen Name Allergen Category Reaction Reaction Severity Criticality Documentation Date Start Date Code Code System Note Provider Name and Address Organization Details Recorded Time 62147 honey bee venom medicatio n swelling Not available low 09/10/2023 98091 7 Devon KWOK MD [address] [facility] [address], [place], [address], [facility] 4 08:28:59 [address] Benadryl medicatio n hives Not available low 09/10/2023 89644 7 Devon KWOK MD [address], [place], [address], [facility] 4 07:45:46 49905 morphine medicatio n chest pain Not available high 09/10/2023 7052 Devon KWOK MD [address] [facility] [address], [place], [address], [facility] 4 07:45:59 Medications Name Sig Start Date Stop Date Status Note LastModified by Organization Details LastModified Time Readi-Cat 2 2.1 % (w/v), 2.0 % (w/w) oral suspension Take 450 mL twice a day by oral route as directed for 1 day. 024 active Not Available Not Available Not Avai lable magnesium 1 po qd active Not Available Not Av ailable Not Available Multi For Her 1 po qd active Not Available Not Available Not Available Vitals Date Recorded Body height Body mass index (BMI) Body weight Heart rate Oxygen saturation Oxygen saturation in Arterial blood by Pulse oximetry Body temperature Systolic blood pressure Diastolic blood pressure Provider Name and Address Organization Details Last Updated DateTime 4 165.1 cm 38.3 kg/m2 639251. 25 g 68 /min 95 % 95 % 98 [degF] 112 mm[Hg] 75 mm[Hg] Reanna Wolf MA [facility] 4 08:21:37 Date Recorded Body height Body mass index (BMI) Body weight Oxygen saturation Oxygen saturation in Arterial blood by Pulse oximetry Heart rate Body temperature Systolic blood pressure Diastolic blood pressure Provider Name and Address Organization Details Last Updated DateTime 4 165.1 cm 38 kg/m2 147925. 86 g 100 % 100 % 62 /min 98 [degF] 107 mm[Hg] 65 mm[Hg] Geeta Carter MA [facility] 4 08:26:38 Social History Question Answer Notes LastModified by Organizat ion Details LastModified Time Tobacco Smoking Status [facility]/10/2023 08:23:17 What Is Your Level Of Alcohol Consumption? None Information not available 09/10/2023 What Type Of Diet Are You Following? REGULAR Information not available 09/10/2023 When Did You Quit Smoking? 16+yearssinc elastcigaret te Information not available 09/10/2023 What Is Your Current Pack Years? 10packyears Information not available 09/10/2023 At What Age Did You Start Smoking Tobacco? 12 Information not available 09/10/2023 How Much Tobacco Do You Smoke? No Information not available 09/10/2023 Do You Use Any Illicit Or Recreational Drugs? No Information not available 09/10/2023 How Many Years Have You Smoked Tobacco? 31 Information not available 09/10/2023 Sex: Unknown Functional Status Question Answer Note LastModified by Organizat ion Details LastModified Time What is your exercise level? Occasional Information not available 09/10/2023 Mental Status None recorded. Family History Relationship Description Onset Age of this Age Resolved Age Notes LastModified by Organization Details LastModified Time Mother Essential hypertension Not available 07:46:27 Mother Diabetes mellitus Not available 09/10 07:46:36 Mother Polyp of colon Not available 09/10 07:46:45 Mother Cerebrovascu lar accident Not available 07:46:55 Mother Anemia Not available 09/10/2023 07:47:33 Sister Malignant tumor of breast Not available 09/10 07:47:09 Sister Malignant neoplasm of lung Not available 09/10 07:47:24 Brother Myocardial infarction Not available 09/2023 07:47:57 Medical History No medical history recorded. Gynecological History Statement/Question Response Most Recent Mammogram 10/07/2023 Obstetrics History GPAL:G 0 P 0 0 0 0 Immunizations Vaccine Type Date Status Note Provider Nam e and Address Organization Details Recorded Time Tdap 05/21/2021 completed HEMALATHA Freeman MA [facility] 03/16/2024 08:18:32 Past Encounters Encounter ID Performer Location Encounter Start Date Encounter Closed Date Diagnosis/Indication Diagnosis SNOMED-CT Code Diagnosis ICD10 Code Diagnosis Note [id number] JEFFREY KWOK MD Main Office [address] [facility] [place] [address] 09/10/2023 08:07:57 09/10/2023 08:54:29 Adult health examination 067477385 Z00.00 Health Maintenanc e FemaleA) Patient was counseled on healthy diet, exercise and nutrition due to BMI of 38.3 B) ScreeningL ast Mammogram: start at age 50 stop at 75Date: 10/01/2022R esult: BIRADS-1Ne xt: 09/2023 Last Pap smear: s/p hysterecto my Last Colonoscop y: start at age 45-75Date: 2Re sult: one serrerated polyp, several hyperplast icNext: 3 years. 02/2025 Last DEXA scan:Date: due at 66Result: ??? Low dose CT scan: does not meet criteria C) Vaccines:I nfluenza: refusedTdA P: 05/21/2021 Zoster: refusedPCV 13: due at 23XZQI62: due at 55GSR65:PC V15:COVID: refused D) Routine blood work orderedE) Updated patient's history RTC in one year for annual exam or sooner if any acute complaints Fatigue 60509001 R53.83 Z00.00 Hyperlipidemia 87079517 E78.5 Z00.00 Screening for malignant neoplasm of breast 996356756 Z12.39 Patient ne w to provider [id number] 74925 Z76.89 - reviewed previous PCP notes Hepatitis C screening 42 9260098 Z11.59 Numbness o f upper limb 388182251 R20.0 - noted in the evening- pt underwent MRI of the spine which showed mild disc bulging (09/29)- will check blood work- ordered EMG of upper extremity for further evaluation Depressive 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 Avoid excessive caffeine, chocolate, alcohol, peppermint , and fatty foods.-adv ised to take OTC medication s such as TUMS or pepcid Body mass index 30+ - obesity 805270260 E66.9 Z68.38 - BMI of 38.3 Discussed: - Cut down on (limit) fast foods, sweets, and processed snack foods. - Limit alcohol intake to no more than 1- 2 drinks a day for men. One drink equals 12 oz of beer, 5 oz of wine, or 1 oz of hard liquor. - Keep a weight loss journal and keep track of the food and portions that you eat. - The exercise that you do- 4 times a week or 150 minutes cumulative of moderate exercise recommende d. [id number] JEFFREY KWOK MD Main Office [address] [facility] [address] [facility] [place], [place] [address] 03/16/2024 08:10:26 03/16/2024 08:49:44 Numbness of upper limb 530853479 R20.0 - noted in the evening- pt underwent MRI of the spine which showed mild disc bulging (09/29)- normal vitamin b12 and vitamin D- EMG was performed, will request results- may need repeat MRI- recommende d Nocturnal wrist splinting in the neutral position- universal wrist brace bilateral Gastroesop hageal reflux disease 301899129 K21.9 The following lifestyle changes are recommende d and counseled :-Losing weight: Losing weight helps people who are overweight to reduce acid reflux.-Ra ising the head of your bed six to eight inches-Jimmie iding foods that trigger symptoms ? Avoid excessive caffeine, chocolate, alcohol, peppermint , and fatty foods.-adv ised to take OTC medication s such as TUMS or pepcid Upper abdominal pain 831 41691 R10.10 - located in the epigastric region- hepatic function panel and BMP were normal- pain however starts in the back and moves forward therefore if CT abdomen is negative will start looking at the back for other possible cause- pt mentions she will only see GI in about 2-3 years, does not see often Health Concerns Section Related Observation LastModified by Organization Detai ls LastModified Time None Recorded Concern Status LastModified by Organization Details LastModified Time None Recorded Advance Directives Directive None Recorded Payers Encounter Date Sequence Insurance Name Policy Number Policy Cardoso Covered Member ID Cardoso Member ID Guarantor Name 09/10/2023 1 [facility] [employer] [facility] [employer] TYPE I (HMO) [id number] Astrid Jones [id number] Astrid Jones 03/16/2024 1 [facility] DIRECT [facility] TYPE I (HMO) [id number] Astrid Jones [id number] Astrid Dexterlisaely Notes Date Note Type Note Provider Name and Address Organization Details Recorded Time 09/10/2023 text/html Astrid Jerry is a 63 year old F who presented to the clinic to establish care. Pt was last seen by a PCP was last year. Complaints: numbness in the fingers, occurs mostly at night Is not using ASA.OTC/Herbal supplements use: MMV, garlic, cinnamon, immune, flax-seed oil, magnesium, tums Gynecologic HistoryPatient's last menstrual period was in 2005No spottingSexually active: yesContraception: menopauses/p hysterectomy -> due to uterine prolapse+/- abnormal paps, it wasDenies cysts, stds, fibroids Obstetric HistoryGravida: 3Para: 3AB: 0LivinComplications: none Drug use: neverEtoh use: does nottobacco use: former smoker, stopped at 45, 1 pack a day, (stopped 18 years ago) = 33 pack yearsspf/derm: Dental: does not see -> upper and lowersEye: every 2-3 yearsDiet: regularActivity: none JEFFREY KWOK MD [address], [address], [facility] 09/10/2023 09:52:04 03/16/2024 text/html Abdominal PainRe ported bypatient.Location:epi gastric Quality:gripping Severity:moderate Duration:constant Onset/Timing:gradual Context:IBS Associated Symptoms:no fever; no chills; no blood in the urine; no shortness of breath;heartburn;nause a(intermittently) Other:denies possible pregnancyNotes:Patient follows with Dr. Hurtado. Pt takes clearlax dialy for bowel movements. Unsure if she spoke to her about this. Is getting worse as now it is regular. Did try a probiotic. Underwent colonoscopy in 2021 showed a polyp. Per patient the pain starts in the back and radiates to the front Astrid Jerry is a 64 year old F who presented to the clinic to for discussion on abdominal pain and numbness in her fingers. Patient mentions that the numbness in her fingers is intermittent and worse in cold. She also has numbness and pain over shoulder and head. Pt underwent EMG. JEFFREY KWOK MD [address] [address], [place], [address], [facility] 03/16/2024 11:46:51 OBGyn Episode No OBEpisode recorded.
--- OUTSIDE RECORDS SUMMARY | 2024-12-08 11:22 | XMS_ITS | Data Portability ---
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 pt c/o right foot pain x 6months or so. she reports she stubs the toes a lot.the area is painful to touch at the distal 2nd-3rd metatarsals. she reports initially she had bruising but has since resolved. she denies any redness, warmth, abrasions, edema. she has not taken anything otc for pain. she denies any cp, sob, numbness/ tingling, calf pain or edema. she describes the pain as sharp and intermittent. Vital Signs: BP 130/72, HR 82, RR 18, T 97.8, O2 97% RA Exam: very pleasant 62 y/o female well appearing, alert NAD. eyes: no injection, icterus or discharge. nose: nares patent no discharge. mouth: moist mucous membranes, no erythema, uvula is midline. no cervical lymphadenopathy. lungs: CTAB no wheezes rales or rhonchi. heart: RRR no murmur rubs or gallops. no peripheral edema. skin: no rashes or lesions. gait and stance is normal. right foot: faint resolving ecchymosis noted 2nd-3rd MTP joints. + tenderness on palpation 2nd-3rd MTP joints and distal 2nd-3rd metatarsals. ROM slightly limited due to pain tenderness with inversion and eversion. DDx considered, with rationale: Metatarsal fracture: considered due to prior injury and pain. neuropathy: considered but normal sensation to light touch on exam. cellulitis: considered but no abrasions or erythema, warmth. Results/ work up: xray right foot pending. Plan: Right foot pain: elevate the foot prn. recommend applying ice to affected area but not directly on the skin itself. recommend otc Ibuprofen 600 mg bid x 5 days. take with food. pt will call and schedule appt for xray. follow up with pcp in 3-5 days or sooner prn. Go to the ER with any new or worsening symptoms cp, sob, edema, numbness, change in skin color, fever, redness. Proper Personal Protective Equipment (PPE), including gloves, eye protection and masks were donned and doffed appropriately and all equipment cleaned using approved technique with germicidal disposable wipes prior to and after care of this patient according to [facility]'s infection prevention protocols. [email or web address] Not available 10/13/2022 10:24:29 Plan of Treatment Reminders Order Date Submit Date Provider Last Modified By Organization Details Last Modified Time Details Appointments None recorded. Lab None recorded. Referral None recorded. Procedures None recorded. Surgeries None recorded. Imaging XR, foot, 3 or more view - right foot pain 2nd-3rd metatarsals 2022 023 [facility] [address] [place] [address], [place], [address], 12:56:39 Medication Orders None recorded. Patient TargetsNo targets recorded. Patient InstructionsNo instructions recorded. Reason for Referral None Reported. Results Created Date Observation Date Name Description Value Unit Range Abnormal Flag Note LastModifiedBy Organization Detail LastModifiedTime 10/14/1910/13/2022 foot compl ete, min 3V FOOT COMPLE TE, MIN 3V, RIGHT FINDIN GS: The ossifi cation is normal for right foot, includ ing the tarsal bones. There is no fractu re, disloc ation, or soft tissue swelli ng seen. No osteom yeliti s is seen. CONCLU HASMUKH: Normal right foot. ELECTR ONICAL LY SIGNED BY THOMAS Bailey M.D. 10/14/19 23 12:49: 33 PM EST. FOOT COMPLE TE, MIN 3V, RIGHT Result s: The ossifi cation is normal for right foot, includ ing the tarsal bones. There is no fractu re, disloc ation, or soft tissue swelli ng seen. No osteom yeliti s is seen. Conclu hasmukh: Normal right foot. Electr onical ly signed by THOMAS Bailey M.D. 10/14/19 12:49: 33 PM EST. [employer] [facility] [address] [address], [place], [address], 10/13/2022 16:21:19 Result Notes None recorded. Procedures Surgical History Date Name Laterality Status Provider Name and Address Organization Details Recorded Time Total Hysterectomy completed ROBBIE Mcbride [address], [place], [address], [place] [facility] 10/13/2022 09:26:05 Appendectomy completed ROBBIE Mcbride [address], [place], [address], [place] [facility] 10/13/2022 09:26:12 Tonsillectomy completed ROBBIE Mcbride [address] [place], [address], [place] [facility] 10/13/2022 09:26:19 partial excision of rib completed ROBBIE Mcbride [address], [place], [address], [place] [facility] 10/13/2022 09:26:38 Imaging Results Imaging Date Name Status LastModified by Organiz ation Details LastModified Time 10/13/2022 foot complete, min 3V completed [email or web address] [facility] [address] [facility] [address], [place], [address], 10/13/2022 16:21:19 Procedure Notes None recorded. Medical Equipment None Reported. Allergies Allergen ID Allergen Name Allergen Category Reaction Reaction Severity Criticality Documentation Date Start Date Code Code System Note Provider Name and Address Organization Details Recorded Time 309523 morphine medicatio n Not available Not available Not available 10/13/2022 7052 [facility] ROBBIE Mcbride [address] [place], [address], [place] [facility] 3 09:23:14 449842 Benadryl medicatio n Not available Not available Not available 10/13/202296521 7 [facility] ROBBIE Mcbride [address], [place], [address], [place] [facility] 3 09:23:28 Medications Name Sig Start Date Stop Date Status Note LastModified by Organization Details LastModified Time Vitamin D3 active Not Available Not Available Not Available peg 3350-elec trolytes 236 gram-22.7 4 gram-6.74 gram-5.86 gram solution TAKE 8 OUNCE BY MOUTH DIRECTED FOLLOW INSTRUCTION S PROVIDED BY OFFICE 10/13 completed Not Available Not Available Not Available Multi For Her active Not Available Not Available Not Available Vitals Date Recorded Respiratory rate Heart rate Body temperature Oxygen saturation Oxygen saturation in Arterial blood by Pulse oximetry Systolic blood pressure Diastolic blood pressure Provider Name and Address Organization Details Last Updated DateTime 3 18 /min 82 /min 97.8 [degF] 97 % 97 % 130 mm[Hg] 72 mm[Hg] Not Available [facility] 3 09:22:25 Social History Question Answer Notes LastModified by Organizat ion Details LastModified Time Tobacco Smoking Status Former Smoker ROBBIE Mcbride [address], [place], [address], [place] [facility] 10/13/2022 09:25:27 Do You Have An Advance Directive? No [email or web address] Information not available 10/13/2022 What Is Your Level Of Alcohol Consumption? None [email or web address] Information not available 10/13/2022 What Is Your Code Status? Full Code [email or web address] Information not available 10/13/2022 Fall Risk: Do You Feel Unsteady When Standing Or Walking? No [email or web address] Information not available 10/13/2022 Excessive Alcohol Or Drug Use No [email or web address] Information not available 10/13/2022 Does This Patient Have A PCP? Yes [email or web address] Information not available 10/13/2022 Has The Patient Seen Their PCP In The Past 6 Months? Yes [email or web address] Information not available 10/13/2022 Is This Patient In Hospice? No [email or web address] Information not available 10/13/2022 ADL: Do You Need Help With Daily Activities Such As Bathing, Preparing Meals, Dressing, Or Cleaning? No Information not available 10/13/2022 Social Support: Do You Feel Safe? Yes Information no t available 10/13/2022 What Is Your Housing Situation Today? I Have Housing Information not available 10/13/2022 Do You Use Any Illicit Or Recreational Drugs? No Information not available 10/13/2022 Sex: Unknown Functional Status None recorded. Mental Status None recorded. Family History Relationship Description Onset Age of this Age Resolved Age Notes LastModified by Organization Details LastModified Time Mother Diabetes mellitus Not available 10/13 09:24:34 Mother Kidney disease [email or web address] Not available 10/13 09:24:52 Medical History Condition Response Coronary Artery Disease N Parkinson's Disease N Depression N COPD N Hypothyroidism N A-fib N Diabetes N CHF N Cancer N Dementia N Stroke N Asthma N High Cholesterol N Rheumatoid Arthritis N Pulmonary Embolism N Hypertension N Osteoporosis N Kidney Disease N Gynecological HistoryNo gynecological history recorded. Obstetrics History GPAL:G 0 P 0 0 0 0 Past Encounters Encounter ID Performer Location Encounter Start Date Encounter Closed Date Diagnosis/Indication Diagnosis SNOMED-CT Code Diagnosis ICD10 Code Diagnosis Note [id number] ROBBIE Mcbride [facility] - [address] [address] 10/13/2022 09:20:28 10/15/2022 16:54:05 Pain in right foot [id number] 30536 M79.671 Health Concerns Section Related Observation LastModified by Organization Detai ls LastModified Time None Recorded Concern Status LastModified by Organization Details LastModified Time None Recorded Advance Directives Directive N: Payers Encounter Date Sequence Insurance Name Policy Number Policy Cardoso Covered Member ID Cardoso Member ID Guarantor Name 10/13/2022 1 [employer] (MEDICAID REPLACEMENT - HMO) ADRIACO Justine Jones [id number] Justine Jones 10/13/2022 2 [place] [facility] Justine Jones [id number] Justine Jones Notes Date Note Type Note Provider Name and Address Organization Details Recorded Time 10/13/2022 text/html 62 y/o female new to with hx of vitamin d deficiency. pt c/o right foot pain x 6months or so. she reports she stubs the toes a lot. the area is painful to touch at the distal 2nd-3rd metatarsals. she reports initially she had bruising but has since resolved. she denies any redness, warmth, abrasions, edema. she has not taken anything otc for pain. she denies any cp, sob, numbness/ tingling, calf pain or edema. she describes the pain as sharp and intermittent. pt denies any prior injuries in the foot or prior surgeries. ROBBIE Mcbride [facility] [address], [place], [address], [place] [facility] 10/13/2022 10:25:08 OBGyn Episode No OBEpisode recorded.
--- OUTSIDE RECORDS SUMMARY | 2024-12-08 11:22 | XMS_ITS | Clinical Summary ---
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 Name Role Phone Unavailable Primary Care Provider Unavailabl e Social History Tobacco Use Types Packs/Day Years Used Date Smoking Tobacco: Never Assessed Comments Unknown Sex and Gender Information Value Date Recorded Sex Assigned at Female 03/30/2023 3:23 PM EDT Legal Sex Female 3:22 PM EDT Gender Identity Female 03/30/2023 3:23 PM EDT Sexual Orientation Don't know 03/30/2023 3: 23 PM EDT Plan of Treatment Health Maintenance Due Date Last Done Comments CT Colonography 1961 Colonoscopy 1961 Colorectal Cancer Screening 1961 Depression Screening 1961 FIT DNA/Cologuard 1961 FIT 1961 FOBT 1961 HIV Screening 1961 SDOH Screening 1961 Sigmoidoscopy 1961 Alcohol/Substance Use Screening 1973 Tobacco Screening 1973 Hepatitis C Screening 1979 DTaP/Tdap/Td Vaccines (1 - Tdap) 01/29/1980 Pap Smear 1982 Cervical Cancer Screening 1991 HPV/Cotest 1991 Mammogram 2001 Pneumococcal Vaccine: 50+ Ye ars (1 of 1 - PCV) 2011 Zoster Vaccines (1 of 2) 2011 COVID-19 Vaccine ( - 2023-2 5 season) 2024 Influenza Vaccine (#1) 2024 RSV Patients and Pa tients Aged 60 years or older (1 - 1-dose 75+ series) 01/29/2036 HIB Vaccines Aged Out No longer eligi ble based on patient's age to complete this topic HPV Vaccines Aged Out No longer eligi ble based on patient's age to complete this topic Hepatitis A Vaccines Aged Out No long er eligible based on patient's age to complete this topic Hepatitis B Vaccines Aged Out No long er eligible based on patient's age to complete this topic IPV Vaccines Aged Out No longer eligi ble based on patient's age to complete this topic Meningococcal Vaccine Aged Out No elder alden eligible based on patient's age to complete this topic RSV under 20 months Aged Out No longe r eligible based on patient's age to complete this topic Rotavirus Vaccines Aged Out No longer eligible based on patient's age to complete this topic Insurance [facility] DIRECT
--- OUTSIDE RECORDS SUMMARY | 2024-12-08 11:22 | XMS_ITS | Clinical Summary ---
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 Name Role Phone Patsy Mackey MD Primary Care Provider Encounters Date Type Department Care Team Description 11/14/2024 Telephone Gastroenterology - [address] [place] [phone] Rima Hurtado MD 10/31/2024 8:53 AM EDT - 10/31/2024 11:59 PM EDT Hospital Encounter Radiology Department - [address] [phone] Abnormal mammogram Discharge Disposition: Home or Self Care 10/31/2024 8:53 AM EDT - 10/31/2024 11:59 PM EDT Hospital Encounter Radiology Department - [address] [phone] Abnormal mammogram Discharge Disposition: Home or Self Care 10/23/2024 9:29 AM EDT - 10/23/2024 11:59 PM EDT Hospital Encounter Radiology Department - [address] [phone] Abnormal mammogram Discharge Disposition: Home or Self Care 10/23/2024 9:28 AM EDT - 10/23/2024 11:59 PM EDT Hospital Encounter Radiology Department - [address] [phone] Abnormal mammogram Discharge Disposition: Home or Self Care 10/13/2024 8:11 AM EST - 10/13/2024 11:59 PM EST Hospital Encounter Radiology Department - [address] [phone] Encounter for screening mammogram for breast cancer Discharge Disposition: Home or Self Care from Last 3 Months Surgical History Surgery Date Site/Laterality Comments TONSILLECTOMY ADENOIDECTOMY, BILATERAL MYRINGOTOMY AND TUBES 1971 PROCEDURE: HI TONSILLECTOMY & ADENOIDECTOMY <AGE 13 HERNIA REPAIR 2014 PROCEDURE: HI REPAIR FIRST ABDOMINAL WALL HERNIA; COMMENT: post hysterectomy OTHER SURGICAL HISTORY 1995 PROCEDURE: HI EXCISION RIB PARTIAL; COMMENT: thoracic outlet syndrome OTHER SURGICAL HISTORY 2005 PROCEDURE: HISTORICAL TOTAL HYSTERECTOMY W/O BSO; COMMENT: uterus dropped, COLONOSCOPY PROCEDURE: HISTORICAL COLONOSCOPY; COMMENT: Dr Hurtado APPENDECTOMY PROCEDURE: HISTORICAL APPENDECTOMY HYSTERECTOMY age 46 Medical History Medical History Date Comments Appendix disease DX:Appendix dis ease Chronic constipation DX:Chronic constipation COVID-19 virus infection 10/02/2020 DX:COVI D-19 virus infection; COMMENT: 10/01/20 Depression DX:Depression Mixed hyperlipidemia DX:Mixed hy perlipidemia Family History Medical History Relation Name Comments Heart attack Brother Anemia Mother Colon polyps Mother Diabetes Mother Hypertension Mother Other: kidney disease Mother Stroke Mother Breast cancer Sister 1 Lung cancer Sister 2 Colon cancer Neg Hx Ovarian cancer Neg Hx Pancreatic cancer Neg Hx Prostate cancer Neg Hx Uterine cancer Neg Hx Relation Name Status Comments Brother Mother Sister 1 Alive Sister 2 Social History Tobacco Use Types Packs/Day Years Used Date Smoking Tobacco: Former Cigarettes Q uit: 01/23/2006 Smokeless Tobacco: Never Alcohol Use Standard Drinks/Week Comments No 0 (1 standard drink = 0.6 oz pur e alcohol) Comments Unknown Sex and Gender Information Value Date Recorded Sex Assigned at Not on file Legal Sex Female 1:32 AM EST Gender Identity Not on file Sexual Orientation Not on file Obstetrics History Para Term AB IAB SAB Ectopic Multiple Livin g Live Births 3 3 3 3 Date Outcome GA Total Labor Labor/2nd/3rd Weight Sex Type Anes PTL Kelly A1 A5 Name Clin Term Term Term Last Filed Vital Signs Vital Sign Reading Time Taken Comments Blood Pressure 110/77 10/21/2021 2:14 PM EDT Pulse 66 10/21/2021 2:14 PM EDT Temperature - - Respiratory Rate - - Oxygen Saturation - - Inhaled Oxygen Concentration - - Weight 105 kg (232 lb) 10/21/2021 2:14 PM EDT Height 167.6 cm (5' 6 ) 10/21/2021 2:14 PM EDT Body Mass Index 37.45 10/21/2021 2:14 PM EDT Plan of Treatment Upcoming Encounters Date Type Department Care Team (Late st Contact Info) Description 12/20/2024 2:30 PM EDT [facility] [place] [address] [place] [phone] Kayla Núñez MD [address] [place] [address] Health Maintenance Due Date Last Done Comments COVID-19 Vaccine (#1) 1966 Hepatitis A Vaccines (1 of 2 - Risk 2-dose series) 01/29/1980 Pneumococcal Vaccine: 50+ Years (1 of 2 - PCV) 01/29/1980 Pneumococcal Vaccine: Pediatrics (0 to 5 Years) and At-Risk Patients (6 to 64 Years) (1 of 2 - PCV) 01/29/1980 Zoster Vaccines (1 of 2) 01/29/1980 Cervical Cancer Screening: Pap Smear 1982 Hepatitis B Vaccines (1 of 3 - Risk 3-dose series) 2021 RSV Immunization Adult Patients (1 - Risk 60-74 years 1-dose series) 2021 Cholesterol Screening (Lipid Panel) 07/18/2022 Colorectal Cancer Screening: Colonoscopy 07/18/2022 Depression Screening 07/18/2022 HIV Screening 07/18/2022 Hepatitis C Screening 07/18/2022 Social Influencers of Health Screening 07/18/2022 Influenza Vaccine (Season Ended) 2025 Breast Cancer Screening 10/23/2026 10/24/19 25, 10/13/2024, 10/07/2023, Additional history exists DTaP,Tdap,and Td Vaccines (2 - Td or Tdap) 05/21/2031 05/21/2021 HIB Vaccines Aged Out No longer eligi ble based on patient's age to complete this topic HPV Vaccines Aged Out No longer eligi ble based on patient's age to complete this topic IPV Vaccines Aged Out No longer eligi ble based on patient's age to complete this topic MMR Vaccines Aged Out No longer eligi ble based on patient's age to complete this topic Meningococcal ACWY Vaccine Aged Out N o longer eligible based on patient's age to complete this topic Meningococcal B Vaccine Aged Out No l onger eligible based on patient's age to complete this topic RSV Immunization Patients Under 20 months Aged Out No longer eligible based on patient's age to complete this topic Varicella Vaccines Aged Out No longer eligible based on patient's age to complete this topic Procedures Procedure Name Priority Date/Time Associated Diagnosis Comments MG MAMMO DIGITAL DIAGNOSTIC CLIP POST US/MR GUIDE RIGHT Routine 10/31/2024 9:37 AM EDT Abnormal mammogram US BX BREAST PERC 1ST LESION RIGHT Routine 10/31/2024 9:33 AM EDT Abnormal mammogram TISSUE EXAM STAT 10/31/2024 9:17 AM EDT Abnormal mammogram US BREAST LIMITED BILAT Routine 10/23/2024 10:11 AM EDT Abnormal mammogram MG MAMMO DIGITAL DIAGNOSTIC W LEVI BILAT Routine 10/23/2024 9:40 AM EDT Abnormal mammogram MG MAMMO DIGITAL SCREENING W LEVI BILAT Routine 10/13/2024 8:29 AM EST Encounter for screening mammogram for breast cancer from Last 3 Months Results * MG Mammo Digital Diagnostic Clip Post US/MR Guide Right (10/31/2024 9:37 AM EDT) Anatomical Region Laterality Modality Breast Right Mammography 10/31/2024 1:16 PM EDT Impressions 11/02/2024 11:25 AM EDT Successful ultrasound-guided biopsy of a right breast 7:00 lesion SURGICAL PATHOLOGY REPORT DIAGNOSIS: Intraductal papilloma. ??No atypia or malignancy Pathology findings are concordant with imaging findings. BIRADS category 2 - Benign findings RECOMMENDATION: Surgical consultation/management recommended for the right breast. A message was left on the patient's telephone at 11:24 AM on 11/02/2024 -------- FINAL REPORT -------- Dictated By: Lupillo Colon Dictated Date: 10/31/2024 13:16 ET Assigned Physician: Lupillo Colon Reviewed and Electronically Signed By: Lupillo Colon Signed Date: 11/02/2024 11:25 ET Workstation ID: [id number] Transcribed By: Self Edit Transcribed Date: 10/31/2024 13:45 ET Narrative 11/02/2024 11:25 AM EDT EXAM: Ultrasound guided core-needle biopsy of the right breast. HISTORY: Ultrasound-guided biopsy for right breast 7:00 lesion COMPARISON: Ultrasound breast from 10/23/2024 CONSENT: The time-out, which included the woman's full name, date of , description of the expected procedure and procedure site, was performed immediately before the procedure to confirm woman's identity. Informed consent was obtained. PROCEDURE: An ultrasound guided biopsy was performed for the right breast 7:00 lesion. The patient was placed in the supine position and the lesion was localized using real-time sonography. The skin was prepped in the usual manner and draped. Subcutaneous lidocaine was administered at the expected entry site. Additional subcutaneous anesthesia was provided. A skin lisa was made using a scalpel. A 14-gauge spring breast biopsy needle was advanced to the preselected lesion. 4 core biopsy specimens were obtained and post-fire images documenting needle placement were recorded. Biopsy marker clip was inserted into the biopsy cavity under ultrasound guidance. Postprocedure mammogram demonstrates clip. ??A wing clip was placed. Following the procedure, the biopsy site was compressed and cleaned. Steri- Strips and sterile gauze were applied and the patient was given post-biopsy instructions. The patient tolerated the procedure well and left the department in good condition. Specimens were placed in formalin and sent for pathologic analysis. Permanent images are saved to PACS. Procedure Note Lupillo Colon MD - 11/02/2024 EXAM: Ultrasound guided core-needle biopsy of the right breast. HISTORY: Ultrasound-guided biopsy for right breast 7:00 lesion COMPARISON: Ultrasound breast from 10/23/2024 CONSENT: The time-out, which included the woman's full name, date of ,description of the expected procedure and procedure site, was performedimmediately before the procedure to confirm woman's identity. Informed consent was obtained. PROCEDURE: An ultrasound guided biopsy was performed for the right breast 7:00lesion. The patient was placed in the supine position and the lesion was localizedusing real-time sonography. The skin was prepped in the usual manner anddraped. Subcutaneous lidocaine was administered at the expected entry site.Additional subcutaneous anesthesia was provided. A skin lisa was madeusing a scalpel. A 14- gauge spring breast biopsy needle was advanced tothe preselected lesion. 4 core biopsy specimens were obtained andpost-fire images documenting needle placement were recorded. Biopsy marker clip was inserted into the biopsy cavity under ultrasoundguidance. Postprocedure mammogram demonstrates clip. A wing clip wasplaced. Following the procedure, the biopsy site was compressed and cleaned.Steri-Strips and sterile gauze were applied and the patient was givenpost-biopsy instructions. The patient tolerated the procedure well and left the department in goodcondition. Specimens were placed in formalin and sent for pathologic analysis. Permanent images are saved to PACS. IMPRESSION: Successful ultrasound-guided biopsy of a right breast 7:00 lesion SURGICAL PATHOLOGY REPORT DIAGNOSIS: Intraductal papilloma. No atypia or malignancy Pathology findings are concordant with imaging findings. BIRADS category 2 - Benign findings RECOMMENDATION: Surgical consultation/management recommended for the right breast. A message was left on the patient's telephone at 11:24 AM on 11/02/2024 -------- FINAL REPORT -------- Dictated By: Lupillo Colon Dictated Date: 10/31/2024 13:16 ET Assigned Physician: Lupillo Colon Reviewed and Electronically Signed By: Lupillo Colon Signed Date: 11/02/2024 11:25 ET Workstation ID: [id number] Transcribed By: Self Edit Transcribed Date: 10/31/2024 13:45 ET us Divine Colin MD IMG BI PROCEDURES Final Res ult * US Bx Breast Perc 1st Lesion Right (10/31/2024 9:33 AM EDT) Anatomical Region Laterality Modality Breast Right Ultrasound 10/31/2024 1:16 PM EDT Impressions 11/02/2024 11:25 AM EDT Successful ultrasound-guided biopsy of a right breast 7:00 lesion SURGICAL PATHOLOGY REPORT DIAGNOSIS: Intraductal papilloma. ??No atypia or malignancy Pathology findings are concordant with imaging findings. BIRADS category 2 - Benign findings RECOMMENDATION: Surgical consultation/management recommended for the right breast. A message was left on the patient's telephone at 11:24 AM on 11/02/2024 -------- FINAL REPORT -------- Dictated By: Lupillo Colon Dictated Date: 10/31/2024 13:16 ET Assigned Physician: Lupillo Colon Reviewed and Electronically Signed By: Lupillo Colon Signed Date: 11/02/2024 11:25 ET Workstation ID: [id number] Transcribed By: Self Edit Transcribed Date: 10/31/2024 13:45 ET Narrative 11/02/2024 11:25 AM EDT EXAM: Ultrasound guided core-needle biopsy of the right breast. HISTORY: Ultrasound-guided biopsy for right breast 7:00 lesion COMPARISON: Ultrasound breast from 10/23/2024 CONSENT: The time-out, which included the woman's full name, date of , description of the expected procedure and procedure site, was performed immediately before the procedure to confirm woman's identity. Informed consent was obtained. PROCEDURE: An ultrasound guided biopsy was performed for the right breast 7:00 lesion. The patient was placed in the supine position and the lesion was localized using real-time sonography. The skin was prepped in the usual manner and draped. Subcutaneous lidocaine was administered at the expected entry site. Additional subcutaneous anesthesia was provided. A skin lisa was made using a scalpel. A 14-gauge spring breast biopsy needle was advanced to the preselected lesion. 4 core biopsy specimens were obtained and post-fire images documenting needle placement were recorded. Biopsy marker clip was inserted into the biopsy cavity under ultrasound guidance. Postprocedure mammogram demonstrates clip. ??A wing clip was placed. Following the procedure, the biopsy site was compressed and cleaned. Steri- Strips and sterile gauze were applied and the patient was given post-biopsy instructions. The patient tolerated the procedure well and left the department in good condition. Specimens were placed in formalin and sent for pathologic analysis. Permanent images are saved to PACS. Procedure Note Lupillo Colon MD - 11/02/2024 EXAM: Ultrasound guided core-needle biopsy of the right breast. HISTORY: Ultrasound-guided biopsy for right breast 7:00 lesion COMPARISON: Ultrasound breast from 10/23/2024 CONSENT: The time-out, which included the woman's full name, date of ,description of the expected procedure and procedure site, was performedimmediately before the procedure to confirm woman's identity. Informed consent was obtained. PROCEDURE: An ultrasound guided biopsy was performed for the right breast 7:00lesion. The patient was placed in the supine position and the lesion was localizedusing real-time sonography. The skin was prepped in the usual manner anddraped. Subcutaneous lidocaine was administered at the expected entry site.Additional subcutaneous anesthesia was provided. A skin lisa was madeusing a scalpel. A 14- gauge spring breast biopsy needle was advanced tothe preselected lesion. 4 core biopsy specimens were obtained andpost-fire images documenting needle placement were recorded. Biopsy marker clip was inserted into the biopsy cavity under ultrasoundguidance. Postprocedure mammogram demonstrates clip. A wing clip wasplaced. Following the procedure, the biopsy site was compressed and cleaned.Steri-Strips and sterile gauze were applied and the patient was givenpost-biopsy instructions. The patient tolerated the procedure well and left the department in goodcondition. Specimens were placed in formalin and sent for pathologic analysis. Permanent images are saved to PACS. IMPRESSION: Successful ultrasound-guided biopsy of a right breast 7:00 lesion SURGICAL PATHOLOGY REPORT DIAGNOSIS: Intraductal papilloma. No atypia or malignancy Pathology findings are concordant with imaging findings. BIRADS category 2 - Benign findings RECOMMENDATION: Surgical consultation/management recommended for the right breast. A message was left on the patient's telephone at 11:24 AM on 11/02/2024 -------- FINAL REPORT -------- Dictated By: Lupillo Colon Dictated Date: 10/31/2024 13:16 ET Assigned Physician: Lupillo Colon Reviewed and Electronically Signed By: Lupillo Colon Signed Date: 11/02/2024 11:25 ET Workstation ID: [id number] Transcribed By: Self Edit Transcribed Date: 10/31/2024 13:45 ET us Divine Colin MD IMG US PROCEDURES Final Res ult * Tissue exam (10/31/2024 9:17 AM EDT) Final Diagnosis Right breast, 7 o'clock, 3 cm from nipple, heart clip, ultrasound-guid ed core biopsy: Intraductal papilloma Usual ductal hyperplasia No atypia or malignancy identified on deeper levels 11/02/2024 11:14 AM EDT [facility] Clinical Information fat vs cancer vs fibroadenoma heart clip lot [id number]/ 11/02/2024 11:14 AM EDT [facility] Gross Description A. Breast, Right, 7:00 3cm fn: Labeled right breast 7:00, 3 . Received in formalin are four cylindrical yellow-zabala fibrofatty breast cores, ranging from 0.3 x 0.1 cm to 0.7 x 0.1 cm, which are submitted in toto between sponges in one cassette, four pieces, x 3. Time collected: 9:17 AM 10/31/2024 Time put in formalin: 9:20 AM 10/31/2024 Total cold ischemic time: 3 minutes Time tissue exits final stage of formalin on tissue processor: 12 AM 11/01/2024 Total fixation time (ideally between 6 and 72 hours): 14.5 hours BETH 11/02/2024 11:14 AM EDT [facility] Disclaimer Unless otherwise specified, all tissue is 10% NB formalin fixed and paraffin embedded. 11/02/2024 11:14 AM T [facility] Tissue Right breast structure / Unknown 10/31/2024 9:17 AM EDT 10/31/2024 4:41 PM EDT us Lupillo Colon MD LAB PATHOLOGY ORDERABLES Fi nal Result [facility] [address] [place] [address], [place] [phone] * (ABNORMAL) US Breast Limited bilat (10/23/2024 10:11 AM EDT) Anatomical Region Laterality Modality Breast Bilateral Ultrasound 10/23/2024 10:2 2 AM EDT Impressions 10/23/2024 10:38 AM EDT Right: Recommend ultrasound-guided core biopsy of a 0.9 cm lesion at the 7 o'clock position. ??Biopsy appointment has been scheduled. Left: No suspicious finding on callback imaging. ??Routine annual screening mammography recommended. BREAST DENSITY: B - There are scattered areas of fibroglandular density. BI-RADS CATEGORY: 4 - SUSPICIOUS RECOMMENDATION: Core biopsy of right breast recommended. Screening left mammogram is recommended in 1 year. MAMMO LOCATION: [facility], [address] [place] [address], [id number], . -------- FINAL REPORT -------- Dictated By: Shona Rivera Dictated Date: 10/23/2024 10:22 ET Assigned Physician: Shona Rivera Reviewed and Electronically Signed By: Shona Rivera Signed Date: 10/23/2024 10:38 ET Workstation ID: [id number] Transcribed By: Self Edit Transcribed Date: 10/23/2024 10:22 ET Narrative 10/23/2024 10:38 AM EDT EXAM: MG MAMMO DIGITAL DIAGNOSTIC W LEVI BILAT, US BREAST LIMITED BILAT HISTORY: Call back from a screening mammogram. FINDINGS: Right: -90 ML and spot compression MLO and CC views performed with tomosynthesis. ??Persistent 1.0 cm ovoid partially circumscribed lesion in the anterior lower outer breast. -Targeted sonography was subsequently performed. ??0.9 x 0.8 x 0.4 cm heterogeneous hypoechoic ovoid lesion identified at the 7 o'clock position, 3 cm from the nipple, which appears to correspond with the mammographic finding. ??Internal blood flow present on color Doppler. ??The lesion is indeterminate and ultrasound-guided core biopsy is recommended to exclude malignancy. Left: -Spot compression CC view performed with tomosynthesis. ??The asymmetry central to the nipple at the middle depth does not persist. ??Per tomosynthesis, the asymmetry should be in the upper breast. ?? -Targeted sonography was subsequently performed at 11-1 o'clock position. ??0.4 x 0.3 x 0.2 cm cyst at the 12 o'clock position, 2 cm from the nipple, which is likely incidental. ??No suspicious mass identified. us Divine Colin MD IMG US PROCEDURES Final Res ult * (ABNORMAL) MG Mammo Digital Diagnostic w Levi bilat (10/23/2024 9:40 AM EDT) Anatomical Region Laterality Modality Breast Bilateral Mammography 10/23/2024 10:2 2 AM EDT Impressions 10/23/2024 10:38 AM EDT Right: Recommend ultrasound-guided core biopsy of a 0.9 cm lesion at the 7 o'clock position. ??Biopsy appointment has been scheduled. Left: No suspicious finding on callback imaging. ??Routine annual screening mammography recommended. BREAST DENSITY: B - There are scattered areas of fibroglandular density. BI-RADS CATEGORY: 4 - SUSPICIOUS RECOMMENDATION: Core biopsy of right breast recommended. Screening left mammogram is recommended in 1 year. MAMMO LOCATION: [facility], [address] [place] [address], [id number], . -------- FINAL REPORT -------- Dictated By: Shona Rivera Dictated Date: 10/23/2024 10:22 ET Assigned Physician: Shona Rivera Reviewed and Electronically Signed By: Shona Rivera Signed Date: 10/23/2024 10:38 ET Workstation ID: [id number] Transcribed By: Self Edit Transcribed Date: 10/23/2024 10:22 ET Narrative 10/23/2024 10:38 AM EDT EXAM: MG MAMMO DIGITAL DIAGNOSTIC W LEVI BILAT, US BREAST LIMITED BILAT HISTORY: Call back from a screening mammogram. FINDINGS: Right: -90 ML and spot compression MLO and CC views performed with tomosynthesis. ??Persistent 1.0 cm ovoid partially circumscribed lesion in the anterior lower outer breast. -Targeted sonography was subsequently performed. ??0.9 x 0.8 x 0.4 cm heterogeneous hypoechoic ovoid lesion identified at the 7 o'clock position, 3 cm from the nipple, which appears to correspond with the mammographic finding. ??Internal blood flow present on color Doppler. ??The lesion is indeterminate and ultrasound-guided core biopsy is recommended to exclude malignancy. Left: -Spot compression CC view performed with tomosynthesis. ??The asymmetry central to the nipple at the middle depth does not persist. ??Per tomosynthesis, the asymmetry should be in the upper breast. ?? -Targeted sonography was subsequently performed at 11-1 o'clock position. ??0.4 x 0.3 x 0.2 cm cyst at the 12 o'clock position, 2 cm from the nipple, which is likely incidental. ??No suspicious mass identified. us Divine Colin MD IMG BI PROCEDURES Final Res ult * (ABNORMAL) MG Mammo Digital Screening w Levi bilat (10/13/2024 8:29 AM EST) Anatomical Region Laterality Modality Breast Bilateral Mammography 10/13/2024 1:45 PM EST Impressions 10/13/2024 1:52 PM EST 1. ??Right: Indeterminate lower outer anterior depth focal asymmetry slightly increased from prior 2. Left: Indeterminate cc view central to the nipple middle depth asymmetry 3. Scattered fibroglandular tissue BI-RADS CATEGORY: 0 - INCOMPLETE - NEED ADDITIONAL IMAGING EVALUATION RECOMMENDATION: Additional bilateral breast imaging recommended. Right breast CC and MLO spot compression, full-field ML, targeted ultrasound, left breast cc view spot compression, targeted ultrasound Mammo Location: [facility], [address] [place] [address], [id number], . -------- FINAL REPORT -------- Dictated By: Lupillo Colon Dictated Date: 10/13/2024 13:45 ET Assigned Physician: Lupillo Colon Reviewed and Electronically Signed By: Lupillo Colon Signed Date: 10/13/2024 13:52 ET Workstation ID: [id number] Transcribed By: Self Edit Transcribed Date: 10/13/2024 13:45 ET Narrative 10/13/2024 1:52 PM EST A BILATERAL DIGITAL 3D SCREENING MAMMOGRAPHY HISTORY: Routine screening. ??Family history of breast cancer in sister. COMPARISON: Multiple priors dating back to 09/19/2020 Technique: Bilateral full field digital mammography (3D) was performed using standard CC and MLO projections CAD ??was used to evaluate this mammogram. FINDINGS: Right: Indeterminate lower outer anterior depth focal asymmetry slightly increased in size from prior Left: Indeterminate cc view central to the nipple middle depth asymmetry BREAST DENSITY: B - There are scattered areas of fibroglandular density. Procedure Note Lupillo Colon MD - 10/13/2024 A BILATERAL DIGITAL 3D SCREENING MAMMOGRAPHY HISTORY: Routine screening. Family history of breast cancer in sister. COMPARISON: Multiple priors dating back to 09/19/2020 Technique: Bilateral full field digital mammography (3D) was performedusing standard CC and MLO projections CAD was used to evaluate this mammogram. FINDINGS: Right: Indeterminate lower outer anterior depth focal asymmetry slightlyincreased in size from prior Left: Indeterminate cc view central to the nipple middle depth asymmetry BREAST DENSITY: B - There are scattered areas of fibroglandular density. IMPRESSION: 1. Right: Indeterminate lower outer anterior depth focal asymmetryslightly increased from prior 2. Left: Indeterminate cc view central to the nipple middle depthasymmetry 3. Scattered fibroglandular tissue BI-RADS CATEGORY: 0 - INCOMPLETE - NEED ADDITIONAL IMAGING EVALUATION RECOMMENDATION: Additional bilateral breast imaging recommended. Right breast CC and MLOspot compression, full-field ML, targeted ultrasound, left breast cc viewspot compression, targeted ultrasound Mammo Location: [facility], [address] [place] [address], [address], . -------- FINAL REPORT -------- Dictated By: Lupillo Colon Dictated Date: 10/13/2024 13:45 ET Assigned Physician: Lupillo Colon Reviewed and Electronically Signed By: Lupillo Colon Signed Date: 10/13/2024 13:52 ET Workstation ID: [id number] Transcribed By: Self Edit Transcribed Date: 10/13/2024 13:45 ET us Divine Colin MD IMG BI PROCEDURES Final Res ult from Last 3 Months Insurance [facility] [employer] PLAN Care Teams Coil Spring Assembler Relationship Specialty Start Date End Date Patsy Mackey MD [address] [address] PCP - General 10/05/23
--- OUTSIDE RECORDS SUMMARY | 2024-12-08 11:22 | XMS_ITS | Encounter Summary ---
Author Organization [employer] Address 75 [facility] 7 [place] [address] Care Team Providers Care Agile Java Developer Name Role Phone Unavailable Primary Care Provider Unavailabl e Reason for Visit * Reason Onset Date Comments New Patient 03/30/2023 Encounter Details Date Type Department Care Team (Late st Contact Info) Description 03/30/2023 Telephone [facility] MED[facility]INE 230 [place], [place] [phone] Kvng Lambert MD 230 [place], [place] [phone] New Patient Social History Tobacco Use Types Packs/Day Years Used Date Smoking Tobacco: Never Assessed Comments Unknown Sex and Gender Information Value Date Recorded Sex Assigned at Female 03/30/2023 3:23 PM EDT Legal Sex Female 3:22 PM EDT Gender Identity Female 03/30/2023 3:23 PM EDT Sexual Orientation Don't know 03/30/2023 3: 23 PM EDT documented as of this encounter Miscellaneous Notes * Telephone Encounter - Myriam Martinez - 05/13/2023 11:59 AM EDT New Patients Par Myriam Card called to schedule New patient appt, pt did not answer left voicemail to give a call at [phone]. 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 EFFECTIVE SINCE 03/30/2023 documented in this encounter Plan of Treatment Not on file documented as of this encounter Visit Diagnoses Not on filedocumented in this encounter
== END 2024-12-08 11:07 | disposition home or self-care (01) ==
LOC: HO.HMCH 10:19
PROVIDERS: Visit Provider Internal Medicine
DX: Z00.00 Encounter for general adult medical examination without abnormal findings (principal); E66.9 Obesity, unspecified; Z68.37 Body mass index [BMI] 37.0-37.9, adult; Z12.11 Encounter for screening for malignant neoplasm of colon; Z13.820 Encounter for screening for osteoporosis

== ENCOUNTER → 2024-12-08 10:18 | Outpatient (BNVA) | payer OTHER, SELFPAY | PROVIDERS: Visit Provider Internal Medicine | DX: Z00.00 Encounter for general adult medical examination without abnormal findings (principal); E66.9 Obesity, unspecified; D64.9 Anemia, unspecified; E78.00 Pure hypercholesterolemia, unspecified; R30.0 Dysuria; E55.9 Vitamin D deficiency, unspecified; E53.8 Deficiency of other specified B group vitamins; Z78.0 Asymptomatic menopausal state; Z68.37 Body mass index [BMI] 37.0-37.9, adult | CPT/HCPCS: 96127; 99386 ==

== ENCOUNTER 2024-12-15 09:26 | Outpatient (REF) | payer OTHER, SELFPAY ==
[2024-12-15 09:40] LABS: MANUAL DIFF FLAG NO
[2024-12-15 09:46] LABS: Basophils Percent Auto 0.8 % (0-2); Eosinophils Absolute Auto 0.1 X10*3/uL (0.0-0.4); Hematocrit 39.3 % (37.0-47.0); Hemoglobin 13.2 g/dl (12.0-16.0); Lymphocytes Percent Auto 39.4 % (20-40); Mean Corpuscular HGB Conc 33.6 g/dl (31.0-35.0); Mean Corpuscular Hemoglobin 30.5 pg (27.0-33.0); Mean Corpuscular Volume 90.8 fL (80.0-98.0); Mean Platelet Volume 9.7 fL (9.4-12.3); Monocytes Absolute Auto 0.5 X10*3/uL (0.1-1.2); Monocytes Percent Auto 10.8 % (2-11); Neutrophils Absolute Auto 2.3 x10*3/uL (2.0-8.3); Platelet Count 209 X10*3/uL (160-400); Red Blood Count 4.33 X10*6/uL (4.20-5.50); Red Cell Distribution Width 12.4 % (11.0-16.0)
--- OUTSIDE RECORDS SUMMARY | 2024-12-15 09:46 | XMS_ITS | Encounter Summary ---
Author Organization [facility] Address [address] [place] [address] Care Team Providers Care Wood Boring Machine Operator Name Role Phone Patsy Mackey MD Primary Care Provider [phone] Reason for Visit * Reason Onset Date Comments Special Procedure 12/14/2024 Encounter Details Date Type Department Care Team ([facility] st Contact Info) Description 12/14/2024 Telephone Gastroenterology - [address] [phone] Adiel Theodore MD [address] [address] Special Procedure Social History Tobacco Use Types Packs/Day Years [...] on file Sexual Orientation Not on file documented as of this encounter Progress Notes * Leigha Mora MA - 12/14/2024 2:47 PM EDT Scheduled. * Estephaina Guaman MA - 12/14/2024 11:36 AM EDT Medications and allergies updated. * Clara Zuluaga - 12/14/2024 10:52 AM EDT Records received from [facility] for direct book, given to HEMALATHA to update meds and allergies. documented in this encounter Plan of Treatment Upcoming Encounters Date Type Department Care Team (Late st Contact Info) Description 12/20/2024 2:30 PM EDT Consult Breast Care [facility] 271 [facility] 200 [place] [phone] Kayla Núñez MD 175 [facility] 110 [place] [address] documented as of this encounter Visit Diagnoses Not on filedocumented in this encounter Historical Medications * This list may reflect changes made after this encounter. flaxseed oiL 1,000 mg capsule Take by mouth. multivitamin with minerals (CENTRUM/CERTAVIT) 18-400 mg-mcg tablet tablet Take by mouth. added in this encounter Care Teams Wood Boring Machine Operator Relationship Specialty Start Date End Date Patsy Mackey MD 3640 [facility] 207 [place] [address] PCP - General 10/05/23 documented as of this encounter
--- OUTSIDE RECORDS SUMMARY | 2024-12-15 09:46 | XMS_ITS | Encounter Summary ---
Author Organization [employer] Address 75 [facility] 7 [place] [address] Care Team Providers Care Welder Journeyman Name Role Phone Unavailable Primary Care Provider Unavailabl e Reason for Visit * Reason Onset Date Comments New Patient 03/30/2023 Encounter Details Date Type Department Care Team (Late st Contact Info) Description 03/30/2023 Telephone [facility] MEDICINE 230 [place], [place] [phone] Kvng Lambert MD 230 [place], [place] [phone] New Patient Social History Tobacco Use Types [...] left voicemail to give a call at [phone]. 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 EFFECTIVE SINCE 03/30/2023 documented in this encounter Plan of Treatment Not on file documented as of this encounter Visit Diagnoses Not on filedocumented in this encounter
--- OUTSIDE RECORDS SUMMARY | 2024-12-15 09:46 | XMS_ITS | Data Portability ---
Author Organization [facility], Main Office Address 36[address] [facility] [address] [place] [address] Care Team Providers Care Marketing Assistant Manager Name Role Phone JEFFREY KWOK Primary Care Provider MILDRED HURTADO Water Quality Specialist ANA SKINNER High Pressure Boiler Operator Assessment No assessment recorded. Plan of Treatment Reminders Order Date Submit Date Provider Last Modified By Organization Details Last Modified Time Details Appointments None recorded. Lab hepatic function panel, serum 2023 024 [facility], [address], [address], [place], [address], 4 16:17:34 lipid panel, serum 2023 024 [facility], [address], [address], [place], [address], 4 16:17:35 BMP, serum or plasma 2023 024 [facility], [address], [address], [place], [address], 4 16:17:33 CBC w/ auto diff 2023 024 [facility], [address], [address], [place], [address], 4 14:40:05 TSH, serum or plasma 2023 024 [facility], [address], [address], [place], [address], 4 16:16:51 hepatitis C virus Ab, serum 2023 024 [facility], [address], [address], [place], [address], 4 21:11:17 vitamin B12, serum 2023 024 [facility], [address], [address], [place], [address], 4 16:16:50 vitamin D, 25-hydroxy, total, serum 2023 024 [facility], [address], [address], [place], [address], 4 16:16:52 Referral None recorded. Procedures None recorded. Surgeries None recorded. Imaging CT, abdomen + pelvis, w/ contrast - chronic pain for several months, located in the epigastric region and radiates to the back 2023 024 jenna [facility] (Ct Scan), [address] [place], [address], 4 11:31:04 MAMMO, screening, bilateral 2023 024 [facility], [address], [address], [place], [address], 4 13:18:55 electromyog jim + nerve conduction study - of the bilateral upper extremities 2023 024 jenna [facility] ([facility]), [address], [place], [address], 4 12:46:45 Medication Orders Readi-Cat 2 2.1 % (w/v), 2.0 % (w/w) oral suspension 2023 024 [facility]aptista 6 [facility], [address] [place] [address], [place], [address], 11:14:35 Patient TargetsNo targets recorded. Patient Instructions Encounter Date Encounter Id Patient Instructions Last Modified By Organization Details Last Modified Time 09/10/2023 [id number] gastroesophageal reflux disease (GERD): care instructions Not available 09/10/2023 08:47:24 learning about m ood disorders Not available 09/10/2023 08:47:01 starting a weigh t loss plan: care instructions Not available 09/10/2023 09:51:28 Nutrition Referr al and Weight Management Follow-up Information Not available 09/10/2023 09:51:28 03/16/2024 [id number] gastroesophageal reflux disease (GERD): care instructions Not [...] t, Rhiannon [place], [place] [address] Not Available [address], [address], 11/02/2024 11:17:37 11/01/1910/31/2024 TISSU E EXAM final [...] on 2024 at 11:14 AM Not Available [address], [address], 11/02/2024 11:17:37 11/01/19 25 10/31/2024 TISSU E EXAM clinical information fat vs cancer vs fibroa denoma heart clip lot [email or web address] 150/ Not Available [address], [address], 11/02/2024 11:17:37 11/01/19 25 10/31/2024 TISSU E EXAM gross description A. Breast , Right, 7:00 3cm fn: Label ed righ t breas t 7:00, 3 . Recei jesscia in forma raudel are four cylin drica [...] hours ): 14.5 hours BETH Not Available [address], [address], 11/02/2024 11:17:37 11/01/19 25 10/31/2024 TISSU E EXAM disclaimer Unles s other sweet speci fied, all tissu e is 10% NB forma raudel fixed and paraf fin embed ded. Not Available [address], [address], 11/02/2024 11:17:37 10/27/19 24 10/07/2023 MAMMO , scree david, bilat eral No observ ation record ed. [email or web address] [facility] [address], [address], 10/27/2023 13:20:30 12/07/19 24 12/06/2023 elect romyo gram + nerve condu ction study No observ ation record ed. [facility] [address], [place], [address], 12/10/2023 14:25:52 04/06/20 24 04/06/2024 XR, abdom [...] obstru ction or free air. Examin ation [id number]. Thank you for allowi ng me to partic ipate in the care of this patien t. WSN: [id number] Orderi ng Physic veronica: Keara Henley Dictat ed By: Edis Marte MD Dictat ed Date/T liliana: 3:46 pm Review ed By: Edis Marte MD Signed By: Edis Marte MD Signed Date/T liliana: 3:46 pm Transc ribed By: AUSTIN Transc ribed Date/T liliana: 3:46 pm Patien t Class: Outpat ient [email or web address] [facility] (Outpt Imaging) [address], [place], [address], 04/12/2024 10:58:38 10/14/19 25 10/13/2024 mg mammo digit al scree david W osbaldo bilat See Note [facility] , a member of [employer] [facility] Name: ASTRID DUFF Date of : 1959 Reason for Exam: Breast cancer screen , avg risk, asympt omatic (Age => 41y) Exam Date: 2024 [id number] EST Report Status : Final Orderi ng [...] [facility], [address], [place] , [place], [address], . ------ -- FINAL REPORT ------ -- Dictat ed By: Nahomi Colon Dictat ed Date: 2024 13:45 ET Assign ed Physic veronica: Nahomi Colon Review ed and Electr onical ly Signed By: Nahomi Colon Signed Date: 2024 13:52 ET Workst ation ID: [id number] Transc ribed By: Self Edit Transc ribed Date: 2024 13:45 ET [facility] [address] [facility], [place], [address], 10/14/2024 10:26:02 10/24/19 25 10/23/2024 US breas t limit ed bilat See Note [facility] , a member of [employer] [facility] Name: ASTRID DUFF Date of : 1959 Reason for Exam: b/l Exam Date: 2024 [id number] EST Report Status : Final Orderi ng [...] pond with the mammog raphic findin g. Thermoscrew Operator al blood flow presen t on color [...] ON: [facility], [address] [facility], [place], [place] [facility] [address], . ------ -- FINAL REPORT ------ -- Dictat ed By: Shona Rivera Dictat ed Date: 2024 10:22 ET Assign ed Physic veronica: Shona Rivera Review ed and Electr onical ly Signed By: Shona Rivera Signed Date: 2024 10:38 ET Workst ation ID: HTPSCR [id number] Transc ribed By: Self Edit Transc ribed Date: 2024 10:22 ET [facility] [address] [facility], [place], [address], 10/23/2024 10:45:53 10/24/19 25 10/23/2024 mg mammo digit al diagn ostic W osbaldo bilat See Note [facility] , a member of [employer] [facility] Name: ASTRID HARTMAN OMEGA Date of : 1959 Reason for Exam: b/l Exam Date: 2024 [id number] EST Report Status : Final Orderi ng [...] pond with the mammog raphic findin g. Thermoscrew Operator al blood flow presen t on color [...] [facility], [address] [facility], [facility], [place], [address], . ------ -- FINAL REPORT ------ -- Dictat ed By: Shona Rivera Dictat ed Date: 2024 10:22 ET Assign ed Physic veronica: Shona Rivera Review ed and Electr onical ly Signed By: Shona Rivera Signed Date: 2024 10:38 ET Workst ation ID: [id number] [id number] Transc ribed By: Self Edit Transc ribed Date: 2024 10:[address], [address], 10/23/2024 10:46:20 11/03/19 25 10/31/2024 mg mammo digit al diagn ostic clip post US/MR guide right See Note [facility] , a member of [employer] [facility] Name: ASTRID DUFF Date of : 1959 Reason for Exam: right core/c lip Exam Date: 2024 [id number] EST Report Status : Final Orderi ng [...] using a scalpe l. A 14-gau ge ZAOZAO breast biopsy needle was advanc ed to [...] Edit Transc ribed Date: 2024 13:45 ET [facility] [address] [facility], [place], [address], 11/02/2024 13:07:03 11/03/1910/31/2024 US BX breas t perc 1st lesio n right See Note [facility] , a member of [employer] [facility] t Name: ASTRID DUFF Date of : 1959 Reason for Exam: right core/c lip Exam Date: 2024 [id number] EST Report Status : Final Orderi ng [...] made using a scalpe l. A 14-gau [employer] breast biopsy needle was advanc ed to [...] REPORT ------ -- Dictat ed By: Nahomi Colno Dictat ed Date: 2024 13:16 ET Assign ed Physic veronica: Nahomi Colon Review ed and Electr onical ly Signed By: Nahomi Colon Signed Date: 2024 11:25 ET Workst ation ID: HTPSCR [id number] Transc ribed By: Self Edit Transc ribed Date: 2024 13:[address], [address], 11/02/2024 13:07:03 Result Notes None recorded. Problems Name Problem SNOMED Code Status Onset Date Resolution Date Notes Provider Name and Address Organization Details Recorded Time Hyperlip idemia 02992634 Active 2023 JEFFREY KWOK MD [address] [facility] [address], [place], [address], [facility] 4 07:44:50 Liver cyst 15675545 Active 2023 JEFFREY KWOK MD [address] 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 [address], [place], [address], [facility] 4 07:50:31 Numbness of upper limb 103760695 Active 2023 in the neck having neck pain (laying down) the arms are numb, cold the fingers go numb with migraines JEFFREY KWOK MD [address] [facility] [address], [place], [address], [facility] 4 08:31:05 Irritabl e bowel syndrome 96035143 Active 2023 JEFFREY KWOK MD [address] [facility] [address], [place], [address], [facility] 4 08:35:39 Carpal tunnel syndrome 60235404 Active 2023 JEFFREY KWOK MD [address] [facility] [address], [place], [address], [facility] 4 11:12:18 Problem Notes None recorded. Procedures Surgical History Date Name Laterality Status Provider Name and Address Organization Details Recorded Time 10/07/19 24 Most Recent Mammogram completed Kari Noble [facility] 10/27/2023 13:20:25 02/13/20 22 Colonoscopy completed Kari Noble [facility] 03/23/2023 16:15:11 total hysterectomy completed JEFFREY KWOK MD [address] [facility] [address], [place], [address], [facility] 09/10/2023 07:48:22 hernia repair completed JEFFREY KWOK MD [address] [facility] Suite [facility], [place], [address], [facility] 09/10/2023 07:48:34 excision of rib completed JEFFREY KWOK MD [address] [facility] Suite [facility], [place], [address], [facility] 09/10/2023 07:48:51 Remove tonsils and adenoids completed JEFFREY KWOK MD [address] [facility] Suite [facility], [place], [address], [facility] 09/10/2023 07:49:10 Appendectomy completed JEFFREY KWOK MD [address] [address], [place], [address], [facility] 09/10/2023 07:49:17 Partial removal of colon completed JFEFREY KWOK MD [address] [address], [place], [address], [facility] 09/10/2023 08:34:13 Imaging Results Imaging Date Name Status LastModified by Organization Details LastModified Time 10/07/2023 MAMMO, screening, bilateral completed [email or web address] [facility] [address] [facility], [place], [address], 10/27/2023 13:20:30 12/06/2023 electromyogram + nerve conduction study completed [facility] [address], [place], [address], 12/10/2023 14:25:52 04/06/2024 XR, abdomen completed [facility] (Outpt Imaging) [address] [facility], [place], [address], 04/12/2024 10:58:38 10/13/2024 mg mammo digital screening W osbaldo bilat completed [facility] [address] [facility], [place], [address], 10/14/2024 10:26:02 10/23/2024 US breast limited bilat completed [address], [address], 10/23/2024 10:45:53 10/23/2024 mg mammo digital diagnostic W osbaldo bilat completed [address], [address], 10/23/2024 10:46:20 10/31/2024 mg mammo digital diagnostic clip post US/MR guide right completed [address], [address], 11/02/2024 13:07:03 10/31/2024 US BX breast perc 1st lesion right completed [address], [address], 11/02/2024 13:07:03 Procedure Notes None recorded. Medical Equipment None Reported. Allergies Allergen ID Allergen Name Allergen Category Reaction Reaction Severity Criticality Documentation Date Start Date Code Code System Note Provider Name and Address Organization Details Recorded Time 81822 honey bee venom medicatio n swelling Not available low 09/10/2023 23114 7 Devon KWOK MD [address] [facility] [address], [place], [address], [facility] 4 08:28:59 [address] Benadryl medicatio n hives Not available low 09/10/2023 90386 7 Devon KWOK MD [address], [place], [address], [facility] 4 07:45:46 [address]49 morphine medicatio n chest pain Not available high 09/10/2023 7052 Devon KWOK MD [address] [facility] [address], [place], [address], [facility] 4 07:45:59 Medications Name Sig Start [...] Updated DateTime 4 165.1 cm 38.3 kg/m2 302278. 25 g 68 /min 95 % 95 % 98 [degF] 112 mm[Hg] 75 mm[Hg] Reanna Wolf MA [facility] 4 08:21:37 Date Recorded Body height Body mass index (BMI) Body weight Oxygen saturation Oxygen saturation in Arterial blood by Pulse oximetry Heart rate Body temperature Systolic blood pressure Diastolic blood pressure Provider Name and Address Organization Details Last Updated DateTime 4 165.1 cm 38 kg/m2 577249. 86 g 100 % 100 % 62 /min 98 [degF] 107 mm[Hg] 65 mm[Hg] Geeta Carter MA [facility] 4 08:26:38 Social History Question Answer Notes LastModified by Organizat ion Details LastModified Time Tobacco Smoking Status [facility] 08:23:17 What Is Your Level Of [...] Time Tdap 05/21/2021 completed HEMALATHA Freeman MA [facility] 03/16/2024 08:18:32 Past Encounters Encounter ID Performer Location Encounter Start Date Encounter Closed Date Diagnosis/Indication Diagnosis SNOMED-CT Code Diagnosis ICD10 Code Diagnosis Note [id number] JEFFREY KWOK MD Main Office [address] [facility] [place] [address] 09/10/2023 08:07:57 09/10/2023 08:54:29 Adult health examination 215039446 Z00.00 Health Maintenanc e FemaleA) Patient was [...] P: 05/21/2021 Zoster: refusedPCV 13: due at 68CHOO23: due at 06TNT58:PC V15:COVID: refused D) Routine blood work orderedE) Updated patient's history RTC in one year for annual exam or sooner if any acute complaints Fatigue 29356186 R53.83 Z00.00 Hyperlipidemia 32354085 E78.5 Z00.00 Screening for malignant neoplasm of breast 709541457 Z12.39 Patient ne w to provider [id number] 98902 Z76.89 - reviewed previous PCP notes Hepatitis C screening 41 8862918 Z11.59 Numbness o f upper limb 033249664 R20.0 - noted in the evening- pt underwent MRI of the spine which showed mild disc bulging (09/29)- will check blood work- ordered EMG of upper extremity for further evaluation Depressive disorder 3548 9007 F32.A - in remission- PHQ-9 score of 0- pt is not currently on any medication s- denies SI/HI- counsellin g provided Gastroesop hageal reflux disease 929291871 K21.9 The following lifestyle changes are recommende [...] pepcid Body mass index 30+ - obesity 608533418 E66.9 Z68.38 - BMI of 38.3 Discussed: [...] minutes cumulative of moderate exercise recommende d. [id number] JEFFREY KWOK MD Main Office [address] [facility] [address] [facility] [place], [place] [address] 03/16/2024 08:10:26 03/16/2024 08:49:44 Numbness of upper limb 633357763 R20.0 - noted in the evening- pt underwent MRI of the spine which showed mild disc bulging (09/29)- normal vitamin b12 and vitamin D- EMG was performed, will request results- may need repeat MRI- recommende d Nocturnal wrist splinting in the neutral position- universal wrist brace bilateral Gastroesop hageal reflux disease 842298440 K21.9 The following lifestyle changes are recommende [...] TUMS or pepcid Upper abdominal pain 831 53005 R10.10 - located in the epigastric region- [...] Cardoso Member ID Guarantor Name 09/10/2023 1 [facility] [employer] [facility] - DIRECT [employer] TYPE I (HMO) [id number] Astrid Jones [id number] Astrid Jones 03/16/2024 1 [facility] - DIRECT [facility] TYPE I (HMO) [id number] Astrid Jones [id number] 01 Astrid Dexterlisaely Notes Date Note Type [...] yearsDiet: regularActivity: none JEFFREY KWOK MD [address], [address], [facility] 09/10/2023 09:52:04 03/16/2024 text/html Abdominal PainRe ported [...] Pt underwent EMG. JEFFREY KWOK MD [address] [address], [place], [address], [facility] 03/16/2024 11:46:51 OBGyn Episode No OBEpisode recorded.
--- OUTSIDE RECORDS SUMMARY | 2024-12-15 09:46 | XMS_ITS | Clinical Summary ---
Author Organization [employer] Address [address] [facility] 7[address] [place] [address] Care Team Providers Care Wireless Field Technician Name Role Phone Unavailable Primary Care Provider [...] patient's age to complete this topic Insurance [facility] DIRECT
--- OUTSIDE RECORDS SUMMARY | 2024-12-15 09:46 | XMS_ITS | Clinical Summary ---
Author Organization [address] Address [address] [place] [address] Phone Care Team Providers Care [place] Seamer Name Role Phone Patsy Mackey MD Primary Care Provider [phone] Allergies Active Allergy Reactions Criticality Noted Date Comments Bee Venom Protein (Honey Bee) Swelling 2020 Diphenhydramine Hcl Hives 01/23/2019 Morphine Pain,Other High 11/15/2018 Medications multivitamin with minerals (CENTRUM/CERTAVI T) 18-400 mg-mcg tablet tablet Take by mouth. Active flaxseed oiL 1,000 mg capsule Take by mouth. Active Encounters Date Type Department Care Team Description 12/14/2024 Telephone Gastroenterology - [address] [phone] Adiel Theodore MD Special Procedure 11/14/2024 Telephone Gastroenterology - [address] [address] Rima Hurtado MD 10/31/2024 8:53 AM EDT - 10/31/2024 11:59 PM EDT Hospital Encounter Radiology Department - [address] [phone] Abnormal mammogram Discharge Disposition: Home or Self Care 10/31/2024 8:53 AM EDT - 10/31/2024 11:59 PM EDT Hospital Encounter Radiology Department - [address] [address] Abnormal mammogram Discharge Disposition: Home or Self Care 10/23/2024 9:29 AM EDT - 10/23/2024 11:59 PM EDT Hospital Encounter Radiology Department - [address] [phone] Abnormal mammogram Discharge Disposition: Home or Self Care 10/23/2024 9:28 AM EDT - 10/23/2024 11:59 PM EDT Hospital Encounter Radiology Department - [address] [phone] Abnormal mammogram Discharge Disposition: Home or Self Care 10/13/2024 8:11 AM EST - 10/13/2024 11:59 PM EST Hospital Encounter Radiology Department - [address] [address] Encounter for screening mammogram for breast cancer Discharge Disposition: Home or Self Care from Last 3 Months Surgical History Surgery Date Site/Laterality Comments TONSILLECTOMY ADENOIDECTOMY, BILATERAL MYRINGOTOMY AND TUBES 1971 PROCEDURE: [place] TONSILLECTOMY & ADENOIDECTOMY <AGE 13 HERNIA REPAIR 2014 PROCEDURE: [place] REPAIR FIRST ABDOMINAL WALL HERNIA; COMMENT: post hysterectomy OTHER SURGICAL HISTORY 1995 PROCEDURE: [place] EXCISION RIB PARTIAL; COMMENT: thoracic outlet syndrome [...] PM EDT Consult [facility] [address] [facility] [address] [place] [address] Kayla Núñez MD [address] [facility] [address] [place] [address] Health Maintenance Due Date Last Done Comments [...] (Season Ended) 2025 Breast Cancer Screening 10/23/2026 10/24/19, 10/13/2024, 10/07/2023, Additional history exists DTaP,Tdap,and Td [...] Signed Date: 11/02/2024 11:25 ET Workstation ID: [id number] Transcribed By: Self Edit Transcribed Date: 10/31/2024 [...] Signed Date: 11/02/2024 11:25 ET Workstation ID: [id number] Transcribed By: Self Edit Transcribed Date: 10/31/2024 [...] Signed Date: 11/02/2024 11:25 ET Workstation ID: [id number] Transcribed By: Self Edit Transcribed Date: 10/31/2024 [...] Signed Date: 11/02/2024 11:25 ET Workstation ID: [id number] Transcribed By: Self Edit Transcribed Date: 10/31/2024 13:45 ET us Divine Colin MD IMG US PROCEDURES Final Res ult * Tissue exam (10/31/2024 9:17 AM EDT) Final Diagnosis Right breast, 7 o'clock, 3 cm from nipple, heart clip, ultrasound-guid ed core biopsy: Intraductal papilloma Usual ductal hyperplasia No atypia or malignancy identified on deeper levels 11/02/2024 11:14 AM EDT [facility] Clinical Information fat vs cancer vs fibroadenoma heart clip lot [id number]/ 11/02/2024 11:14 AM EDT [facility] Gross Description A. Breast, Right, 7:00 [...] 14.5 hours BETH 11/02/2024 11:14 AM EDT [facility] Disclaimer Unless otherwise specified, all tissue is 10% NB formalin fixed and paraffin embedded. 11/02/2024 11:14 AM EDT [facility] Tissue Right breast structure / Unknown 10/31/2024 9:17 AM EDT 10/31/2024 4:41 PM EDT us Lupillo Colon MD LAB PATHOLOGY ORDERABLES Fi nal Result [facility] [address] [place] [address], * (ABNORMAL) US Breast Limited bilat (10/23/2024 [...] is recommended in 1 year. MAMMO LOCATION: [facility], [address] [place] [address], [address], . -------- FINAL REPORT -------- Dictated By: Shona Rivera Dictated Date: 10/23/2024 10:22 ET Assigned Physician: Shona Rivera Reviewed and Electronically Signed By: Shona Rivera Signed Date: 10/23/2024 10:38 ET Workstation ID: [id number] Transcribed By: Self Edit Transcribed Date: 10/23/2024 [...] is recommended in 1 year. MAMMO LOCATION: [facility], [address] [place] [address], [address], . -------- FINAL REPORT -------- Dictated By: Shona Rivera Dictated Date: 10/23/2024 10:22 ET Assigned Physician: Shona Rivera Reviewed and Electronically Signed By: Shona Rivera Signed Date: 10/23/2024 10:38 ET Workstation ID: [id number] Transcribed By: Self Edit Transcribed Date: 10/23/2024 [...] view spot compression, targeted ultrasound Mammo Location: [facility], [address] [place] [address], [address], . -------- FINAL REPORT -------- Dictated By: Lupillo Colon Dictated Date: 10/13/2024 13:45 ET Assigned Physician: Lupillo Colon Reviewed and Electronically Signed By: Lupillo Colon Signed Date: 10/13/2024 13:52 ET Workstation ID: [id number] Transcribed By: Self Edit Transcribed Date: 10/13/2024 [...] cc viewspot compression, targeted ultrasound Mammo Location: [facility], [address] [place] [address], [address], . -------- FINAL REPORT -------- Dictated By: Lupillo Colon Dictated Date: 10/13/2024 13:45 ET Assigned Physician: Lupillo Colon Reviewed and Electronically Signed By: Lupillo Colon Signed Date: 10/13/2024 13:52 ET Workstation ID: [id number] Transcribed By: Self Edit Transcribed Date: 10/13/2024 13:45 ET us Divine Colin MD IMG BI PROCEDURES Final Res ult from Last 3 Months Insurance [facility] [place] [address] Care Teams [place] Seamer Relationship Specialty Start Date End Date Patsy Mackey MD [address] [address] PCP - General 10/05/23
--- OUTSIDE RECORDS SUMMARY | 2024-12-15 09:46 | XMS_ITS | Encounter Summary ---
Author Organization [facility] Address [address] [place] [address] Care Team Providers Care Supervisor Shop Name Role Phone Patsy Mackey MD Primary Care Provider [phone] Encounter Details Date Type Department Care Team ([facility] st Contact Info) Description 11/14/2024 Telephone Gastroenterology - [address] [phone] Rima Hurtado MD [address] [address] Social History Tobacco Use Types Packs/Day Years [...] - 12/14/2024 2:47 PM EDT Scheduled. * Cristy Bacon - 11/14/2024 9:43 AM EDT Pt calling to book colonoscopy, advised to send a referral from PCP to book. Pt is going to have her physical in December and will book for January. documented in this encounter Plan of Treatment Upcoming Encounters Date Type Department Care Team (Late st Contact Info) Description 12/20/2024 2:30 PM EDT Consult [facility] [address] [facility] [address] [place] [phone] Kayla Núñez MD 175 [facility] [address] [place] [address] documented as of this encounter Visit Diagnoses Not on filedocumented in this encounter Care Teams Supervisor Shop Relationship Specialty Start Date End Date Patsy Mackey MD [address] [facility] [address] [place] [address] PCP - General 10/05/23 documented as of this encounter
[2024-12-15 10:20] LABS: Alanine Aminotransferase 17 U/L (0-31); Albumin Level 4.1 g/dL (3.5-5.0); Alkaline Phosphatase 65 U/L (39-117); Anion Gap 10 (12-20); Aspartate Amino Transferase 30 U/L (5-31); Bilirubin Total 0.5 mg/dL (0.0-1.0); Blood Urea Nitrogen 10 mg/dL (9-16); Calcium 9.1 mg/dL (8.4-10.2); Carbon Dioxide 27 mmol/L (22-29); Chloride 104 mmol/L (96-108); Cholesterol 207 mg/dL (<200); Estimated Glomerular Filt Rate > 60; Glucose Fasting 86 mg/dL (60-99); HDL Cholesterol 40 mg/dL (>40); LDL Cholesterol Calculated 154 mg/dL (<100); Sodium 137 mmol/L (135-145); Total Protein 7.1 g/dL (6.5-8.0); Triglycerides 67 mg/dL (<150)
[2024-12-15 10:40] LABS: TSH reflex Free T4 1.03 uIU/mL (0.32-4.0); Vitamin D 25-OH Total 66.2 ng/mL (>30)
[2024-12-15 10:42] LABS: Folate 13.5 ng/mL (> or = 4.0); Vitamin B12 750 pg/mL (200-900)
[2024-12-15 10:43] LABS: Appearance Urine Cloudy; Color Urine Yellow; Glucose Urine UA Negative (Negative); Leukocyte Esterase Urine Large (3+) (Negative); Nitrite Urine Negative (Negative); PH 7.5 (5.0-9.0); Specific Gravity - Urine 1.015 (1.005-1.025); UMIC TRIGGER UACC YES; Urine Blood Negative (Negative); Urine Ketones Negative (Negative); Urine Protein Trace mg/dL (Neg-Trace)
[2024-12-15 11:06] LABS: Bacteria Urine 1+ (None Seen); RBC Urine 0-2 /HPF (0-2); UACC Culture Trigger YES; WBC Urine 0-5 /HPF (0-5)
[2024-12-15 11:07] LABS: Hyaline Casts Urine 0-2 /LPF (0-2)
== END 2024-12-15 09:27 | disposition home or self-care (01) ==
LOC: HO.LAB 09:26
PROVIDERS: PCP Internal Medicine; Visit Provider Internal Medicine
DX: Z00.00 Encounter for general adult medical examination without abnormal findings (principal); E78.00 Pure hypercholesterolemia, unspecified; D64.9 Anemia, unspecified; E55.9 Vitamin D deficiency, unspecified; E53.8 Deficiency of other specified B group vitamins
CPT/HCPCS: 36415; 80053; 80061; 81001; 82306; 82607; 82746; 84443; 85025; 87086

== ENCOUNTER 2025-01-02 07:57 | Outpatient (REF) | payer OTHER, SELFPAY ==
--- NOTE | ~2025-01-02 | MM_ITS ---
EXAMINATION: DXA BONE DENSITY AXIAL HISTORY: Z78.0 - Asymptomatic menopausal state TECHNIQUE: [facility] Dual energy absorptiometry (DEXA) of the lumbar spine, total left hip, and femoral neck was performed. COMPARISON: There are no prior studies for comparison. FINDINGS: The bone mineral density of the lumbar spine is 1.260, corresponding to a T-score of 0.7, and a Z-score of 1.0. This is indicative of normal bone mineral density. The bone mineral density of the left total hip is 1.067, corresponding to a T-score of 0.5, and a Z-score of 0.8. This is indicative of normal bone mineral density. The bone mineral density of the left femoral neck is 1.041, corresponding to a T-score of 0.0, and a Z-score of 0.7. This is indicative of normal bone mineral density. FRACTURE RISK: The FRAX index suggests a risk of major osteoporotic fracture of 6.0%, and of hip fracture 0.2%. MM/XR DEXA axial skeleton IMPRESSION: Based on bone mineral density, and according to World Health Organization (WHO) criteria, the diagnosis is consistent with normal bone mineral density. All bone density values are in grams per centimeter squared (g/cm2). Statistically, 68% of repeat scans fall within 1 SD (+/- 0.010 g/cm2 for AP spine L1-L4) and 1 SD (+/- 0.012 g/cm2 for femur total) FRAX is a trademark of the [employer], a World Health Organization (WHO) Collaborating Center. Electronically signed by: Chad Salazar MD 01/03/2025 08:51 AM EDT
--- OUTSIDE RECORDS SUMMARY | 2025-01-02 07:59 | XMS_ITS | Clinical Summary ---
Author Organization [address] Address [address] [place] [address] Phone Care Team Providers Care Plate Painter Apprentice Name Role Phone Patsy Mackey MD Primary Care Provider [phone] Allergies Active Allergy Reactions Criticality Noted Date Comments Bee Venom Protein (Honey Bee) Swelling 2020 Diphenhydramine Hcl Hives 01/23/2019 Morphine Pain,Other High 11/15/2018 Medications multivitamin with minerals (CENTRUM/CERTAVI T) 18-400 mg-mcg tablet tablet Take by mouth. Active flaxseed oiL 1,000 mg capsule Take by mouth. Active Encounters Date Type Department Care Team Description 12/14/2024 Telephone Gastroenterology - [address] [phone] Adiel Theodore MD Special Procedure 11/14/2024 Telephone Gastroenterology - [address] [address] Rima Hurtado MD 10/31/2024 8:53 AM EDT - 10/31/2024 11:59 PM EDT Hospital Encounter Radiology Department - [address] [phone] Abnormal mammogram Discharge Disposition: Home or Self Care 10/31/2024 8:53 AM EDT - 10/31/2024 11:59 PM EDT Hospital Encounter Radiology Department - [address] [address] Abnormal mammogram Discharge Disposition: Home or Self Care 10/23/2024 9:29 AM EDT - 10/23/2024 11:59 PM EDT Hospital Encounter Radiology Department - [address] [phone] Abnormal mammogram Discharge Disposition: Home or Self Care 10/23/2024 9:28 AM EDT - 10/23/2024 11:59 PM EDT Hospital Encounter Radiology Department - [address] [phone] Abnormal mammogram Discharge Disposition: Home or Self Care 10/13/2024 8:11 AM EST - 10/13/2024 11:59 PM EST Hospital Encounter Radiology Department - [address] [address] Encounter for screening mammogram for breast cancer Discharge Disposition: Home or Self Care from Last 3 Months Surgical History Surgery Date Site/Laterality Comments TONSILLECTOMY ADENOIDECTOMY, BILATERAL MYRINGOTOMY AND TUBES 1971 PROCEDURE: [place] TONSILLECTOMY & ADENOIDECTOMY <AGE 13 HERNIA REPAIR 2014 PROCEDURE: [place] REPAIR FIRST ABDOMINAL WALL HERNIA; COMMENT: post hysterectomy OTHER SURGICAL HISTORY 1995 PROCEDURE: [place] EXCISION RIB PARTIAL; COMMENT: thoracic outlet syndrome [...] Care Team (Late st Contact Info) Description 02/19/2025 7:[address] [facility] [address] [place] [address] Rima Hurtado MD [address] [address] Health Maintenance Due Date Last Done Comments [...] Signed Date: 11/02/2024 11:25 ET Workstation ID: [id number] Transcribed By: Self Edit Transcribed Date: 10/31/2024 [...] Signed Date: 11/02/2024 11:25 ET Workstation ID: [id number] Transcribed By: Self Edit Transcribed Date: 10/31/2024 [...] Signed Date: 11/02/2024 11:25 ET Workstation ID: [id number] Transcribed By: Self Edit Transcribed Date: 10/31/2024 [...] Signed Date: 11/02/2024 11:25 ET Workstation ID: [id number] Transcribed By: Self Edit Transcribed Date: 10/31/2024 [...] vs cancer vs fibroadenoma heart clip lot [id number] 11/02/2024 11:14 AM EDT [facility] [...] and paraffin embedded. 11/02/2024 11:14 AM EDT [facility] Tissue Right breast structure / Unknown 10/31/2024 9:17 AM EDT 10/31/2024 4:41 PM EDT us Lupillo Colon MD LAB PATHOLOGY ORDERABLES Fi nal Result [facility] [address] [place] [address], * (ABNORMAL) US Breast Limited bilat (10/23/2024 [...] is recommended in 1 year. MAMMO LOCATION: [facility], [address] [place] [address], [address], . -------- FINAL REPORT -------- Dictated By: Shona Rivera Dictated Date: 10/23/2024 10:22 ET Assigned Physician: Shona Rivera Reviewed and Electronically Signed By: Shona Rivera Signed Date: 10/23/2024 10:38 ET Workstation ID: [id number] Transcribed By: Self Edit Transcribed Date: 10/23/2024 [...] is recommended in 1 year. MAMMO LOCATION: [facility], [address] [place] [address], [address], . -------- FINAL REPORT -------- Dictated By: Shona Rivera Dictated Date: 10/23/2024 10:22 ET Assigned Physician: Shona Rivera Reviewed and Electronically Signed By: Shona Rivera Signed Date: 10/23/2024 10:38 ET Workstation ID: [id number] Transcribed By: Self Edit Transcribed Date: 10/23/2024 [...] view spot compression, targeted ultrasound Mammo Location: [facility], [address] [place] [address], [address], . -------- FINAL REPORT -------- Dictated By: Lupillo Colon Dictated Date: 10/13/2024 13:45 ET Assigned Physician: Lupillo Colon Reviewed and Electronically Signed By: Lupillo Colon Signed Date: 10/13/2024 13:52 ET Workstation ID: [id number] Transcribed By: Self Edit Transcribed Date: 10/13/2024 [...] cc viewspot compression, targeted ultrasound Mammo Location: [facility], [address] [place] [address], [address], . -------- FINAL REPORT -------- Dictated By: Lupillo Colon Dictated Date: 10/13/2024 13:45 ET Assigned Physician: Lupillo Colon Reviewed and Electronically Signed By: Lupillo Colon Signed Date: 10/13/2024 13:52 ET Workstation ID: [id number] Transcribed By: Self Edit Transcribed Date: 10/13/2024 13:45 ET Divine Colin MD IMG BI PROCEDURES Final Res ult from Last 3 Months Insurance [facility] Care Teams Plate Painter Apprentice Relationship Specialty Start Date End Date Patsy Mackey MD [address] [address] PCP - General 10/05/23
== END 2025-01-02 07:58 | disposition home or self-care (01) ==
LOC: HO.MAMMO 07:57
PROVIDERS: PCP Internal Medicine; Visit Provider Internal Medicine
DX: Z78.0 Asymptomatic menopausal state (principal)
CPT/HCPCS: 77080

== ENCOUNTER → 2025-01-02 08:15 | Outpatient (BNV) | payer OTHER, SELFPAY | PROVIDERS: PCP Internal Medicine; Visit Provider Radiology Diagnostic Radiology | DX: E28.39 Other primary ovarian failure (principal) | CPT/HCPCS: 77080 ==